=== PATIENT | female | born 1955 | race Caucasian/White ===

== ENCOUNTER 2017-02-19 02:10 | Inpatient (IN) | payer OTHER ==
[~2017-02-19] VITALS: Ht 162.6 cm; Wt 127.1 kg
[~2017-02-19 02:10] MED LIST: ACTOS30 MG PO; Ecotrin PO; GLIPIZIDE10 M1 PO; METFORMIN HCL850 MG PO; PriLOSEC PO; ZESTRIL,PRINIVI10 MG PO
[2017-02-19 04:29] LABS: HEMATOCRIT 29.9 % (36.0-46.0); MCHC 33.4 G/DL (30.0-36.0); MCV 98.7 FL (83-99); MEAN PLAT.VOLUME 9.9 uM^3 (9.5-12.4); PLATELET COUNT 68 K/uL (156-360); RBC DIS.WIDTH-CV 13.6 % (11.8-14.6); RBC DIS.WIDTH-SD 49.7 % (39-53); RED BLOOD COUNT 3.03 M/uL (3.80-5.20); WHITE BLOOD COUNT 7.6 K/uL (4.1-10.2)
[2017-02-19 04:39] LABS: CHLORIDE 109 mEq/L (99-109); POTASSIUM 5.6 mEq/L (3.7-5.4); SODIUM 135 mEq/L (136-147)
[2017-02-19 04:41] LABS: GLUCOSE 167 mg/dL (70-99)
[2017-02-19 04:42] LABS: ANION GAP 8 MEQ/L (2-14)
[2017-02-19 04:43] LABS: TOTAL BILIRUBIN 1.7 mg/dL (0.0-1.0)
[2017-02-19 04:45] LABS: ALKALINE PHOSPHATASE 155 IU/L (3-129); GFR ESTIMATE (CALCULATED) 13 mL/min/
[2017-02-19 04:46] LABS: UREA NITROGEN (BUN) 69 mg/dL (9-23)
[2017-02-19 04:48] LABS: LIPASE 96 U/L (1.0-51.0)
[2017-02-19 04:55] LABS: INTER. NORMALIZED RATIO 1.2; PROTHROMBIN TIME 12.6 (9.2-11.2); PTT 31.3 (25-32)
[2017-02-19] MEDS ORDERED: GLIPIZIDE10 MG PO (08:21)
[2017-02-19] MEDS ORDERED: LISINOPRIL2.5 MG PO (08:21)
[2017-02-19] MEDS ORDERED: NEXIUM40 MG PO (08:25)
[2017-02-19] MEDS ORDERED: BUPROPION HCL75 MG PO (08:26)
[2017-02-19] MEDS ORDERED: FLUOXETINE HCL10 MG PO (08:27)
[2017-02-19] MEDS ORDERED: ARIPIPRAZOLE10 MG PO (08:27)
[2017-02-19] MEDS ORDERED: AMIODARONE HCL100 MG PO (08:27)
[2017-02-19] MEDS ORDERED: SPIRONOLACTONE100 MG PO (08:28)
[2017-02-19] MEDS ORDERED: GELATIN650 MG PO (08:28)
[2017-02-19] MEDS ORDERED: MELATONIN5 M1 PO (08:28)
[2017-02-19] MEDS ORDERED: BYDUREON P2 MG/0.65 SC (08:30)
[2017-02-19 09:45] LABS: ADD MIUA? NO; BILIRUBIN NEGATIVE; BLOOD NEGATIVE; COLOR AMBER ((YELLOW)); GLUCOSE (STRIP) NEGATIVE; KETONES NEGATIVE; LEUKOCYTES NEGATIVE; NITRITE NEGATIVE; PROTEIN (STRIP) NEGATIVE; SPECIFIC GRAVITY 1.014 (1.000-1.030); UCUL ADDED? NO
[2017-02-19 10:38] LABS: UR CREATININE CONCENTRATION 242.5 MG/DL
[2017-02-19 13:11] VITALS: BP 103/49
[2017-02-19 13:13] VITALS: BP 103/99
[2017-02-19 15:51] LABS: ANION GAP 9 MEQ/L (2-14); CHLORIDE 111 MEQ/L (99-109); GFR ESTIMATE (CALCULATED) 14 mL/min/; GLUCOSE 138 mg/dL (70-99); POTASSIUM 5.1 MEQ/L (3.7-5.4); SAMPLE HEMOLYSIS CHECK 0; SAMPLE ICTERIC CHECK 0; SAMPLE LIPEMIA CHECK 0; SODIUM 138 MEQ/L (136-147); UREA NITROGEN (BUN) 64 mg/dL (9-23)
[2017-02-19 16:00] VITALS: BP 118/63
[2017-02-19 19:40] VITALS: BP 99/55
[2017-02-19 23:50] VITALS: BP 92/54
[2017-02-20 04:05] VITALS: BP 90/58
[2017-02-20 06:10] LABS: HEMATOCRIT 23.1 % (36.0-46.0); IMM.PLATELET FRACTION 1.6 (1-7); MCH 34.4 PG (29.0-34.0); MCHC 33.8 G/DL (30.0-36.0); MCV 101.8 FL (83-99); MEAN PLAT.VOLUME 10.9 uM^3 (9.5-12.4); PLATELET COUNT 49 K/uL (156-360); RBC DIS.WIDTH-CV 13.7 % (11.8-14.6); RBC DIS.WIDTH-SD 50.7 % (39-53); WHITE BLOOD COUNT 3.9 K/uL (4.1-10.2)
[2017-02-20 06:15] LABS: RED BLOOD COUNT 2.27 M/uL (3.80-5.20)
[2017-02-20 06:20] LABS: ALKALINE PHOSPHATASE 98 IU/L (3-129); ANION GAP 9 MEQ/L (2-14); CHLORIDE 113 MEQ/L (99-109); GFR ESTIMATE (CALCULATED) 14 mL/min/; GLUCOSE 111 mg/dL (70-99); POTASSIUM 4.7 MEQ/L (3.7-5.4); SAMPLE HEMOLYSIS CHECK 0; SAMPLE ICTERIC CHECK 0; SAMPLE LIPEMIA CHECK 0; SODIUM 139 MEQ/L (136-147); TOTAL BILIRUBIN 1.8 MG/DL (0.0-1.0); UREA NITROGEN (BUN) 62 mg/dL (9-23)
[2017-02-20 06:47] LABS: INTER. NORMALIZED RATIO 1.4
[2017-02-20 07:36] LABS: POINT-OF-CARE METER ID UU14174216
[2017-02-20 07:45] VITALS: BP 91/50
[2017-02-20 08:57] LABS: PLAT.SUFFICIENCY DECREASED
[2017-02-20 12:00] VITALS: BP 93/54
[2017-02-20 16:00] VITALS: BP 108/62
[2017-02-20 18:55] LABS: UR CREATININE CONCENTRATION 222.6 MG/DL
[2017-02-20 19:20] VITALS: BP 101/60
[2017-02-20 22:34] VITALS: BP 103/55
[2017-02-21 03:42] VITALS: BP 106/67
[2017-02-21 05:48] LABS: EOSINOPHIL (%) 5.1 % (0-5); EOSINOPHIL COUNT 0.4 K/uL (0-0.3); HEMATOCRIT 26.2 % (36.0-46.0); IMMATURE GRANULOCYTE COUNT 0.1 K/uL; INSTRUMENT ABS NEUTROPHIL CT 5.4 K/uL; LYMPHOCYTE COUNT 0.5 K/uL (1.0-2.8); MCH 32.9 PG (29.0-34.0); MCHC 32.4 G/DL (30.0-36.0); MCV 101.6 FL (83-99); MEAN PLAT.VOLUME 10.4 uM^3 (9.5-12.4); MONOCYTE (%) 7.9 % (3-12); MONOCYTE COUNT 0.6 K/uL (0-0.8); NEUTROPHIL (%) 78.5 % (45-76); NEUTROPHIL COUNT 5.4 K/uL (1.8-6.4); PLATELET COUNT 62 K/uL (156-360); RBC DIS.WIDTH-CV 13.7 % (11.8-14.6); RBC DIS.WIDTH-SD 50.6 % (39-53); RED BLOOD COUNT 2.58 M/uL (3.80-5.20); WHITE BLOOD COUNT 6.9 K/uL (4.1-10.2)
[2017-02-21 06:16] LABS: ANION GAP 8 MEQ/L (2-14); CHLORIDE 110 MEQ/L (99-109); GFR ESTIMATE (CALCULATED) 14 mL/min/; GLUCOSE 129 mg/dL (70-99); POTASSIUM 4.8 MEQ/L (3.7-5.4); SAMPLE HEMOLYSIS CHECK 0; SAMPLE ICTERIC CHECK 0; SAMPLE LIPEMIA CHECK 0; SODIUM 136 MEQ/L (136-147); UREA NITROGEN (BUN) 62 mg/dL (9-23); URIC ACID 11.3 mg/dL (3.1-9.2)
[2017-02-21 06:17] LABS: ALKALINE PHOSPHATASE 113 IU/L (3-129); ANION GAP 8 MEQ/L (2-14); CHLORIDE 111 MEQ/L (99-109); GFR ESTIMATE (CALCULATED) 14 mL/min/; GLUCOSE 130 mg/dL (70-99); POTASSIUM 4.8 MEQ/L (3.7-5.4); SAMPLE HEMOLYSIS CHECK 0; SAMPLE ICTERIC CHECK 0; SAMPLE LIPEMIA CHECK 0; SODIUM 137 MEQ/L (136-147); TOTAL BILIRUBIN 2.1 MG/DL (0.0-1.0); UREA NITROGEN (BUN) 59 mg/dL (9-23)
[2017-02-21 07:53] VITALS: BP 99/55
[2017-02-21 08:04] LABS: POINT-OF-CARE METER ID UU14174216
[2017-02-21 08:11] LABS: FERRITIN 323 NG/ML (10-291)
[2017-02-21 10:34] LABS: HBSG INDEX 0.25
[2017-02-21 10:35] LABS: AHBS INDEX 0; HEPATITIS B SURFACE ANTIBODY Nonreactive
[2017-02-21 11:00] LABS: POINT-OF-CARE METER ID UU14174216
[2017-02-21 11:07] VITALS: BP 103/64
[2017-02-21 15:06] VITALS: BP 103/57
[2017-02-21 19:01] VITALS: BP 105/57
[2017-02-21 23:22] VITALS: BP 106/53
[2017-02-22 05:30] VITALS: BP 111/55
[2017-02-22 05:46] LABS: HEMATOCRIT 25.8 % (36.0-46.0); MCH 34.4 PG (29.0-34.0); MCHC 33.7 G/DL (30.0-36.0); MEAN PLAT.VOLUME 10.6 uM^3 (9.5-12.4); PLATELET COUNT 64 K/uL (156-360); RBC DIS.WIDTH-CV 13.5 % (11.8-14.6); RBC DIS.WIDTH-SD 50.6 % (39-53); RED BLOOD COUNT 2.53 M/uL (3.80-5.20); WHITE BLOOD COUNT 7.1 K/uL (4.1-10.2)
[2017-02-22 06:13] LABS: ANION GAP 9 MEQ/L (2-14); CHLORIDE 111 MEQ/L (99-109); GFR ESTIMATE (CALCULATED) 15 mL/min/; GLUCOSE 138 mg/dL (70-99); SAMPLE HEMOLYSIS CHECK 0; SAMPLE ICTERIC CHECK 0; SAMPLE LIPEMIA CHECK 0; SODIUM 137 MEQ/L (136-147); UREA NITROGEN (BUN) 62 mg/dL (9-23)
[2017-02-22 07:30] VITALS: BP 111/56
[2017-02-22 16:44] LABS: MITOCHONDRIAL (M2) ANTIBODIES+ <=20.0 U (<=20.0)
[2017-02-22 22:36] LABS: ANTI-SMOOTH MUSCLE (Actin)+ <20 U (<20); HCV RNA (IU/mL) <15 IU/mL (<15)
[2017-02-23 09:17] LABS: HCV RNA (LOG IU/mL) <1.18 (<1.18)
== END 2017-02-22 11:15 | disposition short-term general hospital (02) | DRG 442 ==
LOC: EME 02:10 → 4EAST 08:16 → EDOF 08:16 → 4EAST 12:45
PROVIDERS: Emergency Medicine; Hospitalist; Internal Medicine; Internal Medicine Gastroenterology; Internal Medicine Nephrology
PROC: 0W9G3ZZ Drainage of Peritoneal Cavity, Percutaneous Approach (ICD-10-PCS; principal; 2017-02-19)
DX: K76.7 Hepatorenal syndrome (principal); K72.90 Hepatic failure, unspecified without coma; I95.9 Hypotension, unspecified; N17.9 Acute kidney failure, unspecified; R18.8 Other ascites; E87.2 Acidosis; I85.00 Esophageal varices without bleeding; N18.4 Chronic kidney disease, stage 4 (severe); D69.6 Thrombocytopenia, unspecified; K76.6 Portal hypertension; K75.81 Nonalcoholic steatohepatitis (NASH); K74.69 Other cirrhosis of liver; D63.1 Anemia in chronic kidney disease; E11.22 Type 2 diabetes mellitus with diabetic chronic kidney disease; R01.1 Cardiac murmur, unspecified; E66.9 Obesity, unspecified; E87.1 Hypo-osmolality and hyponatremia; E87.5 Hyperkalemia; F17.210 Nicotine dependence, cigarettes, uncomplicated; I12.9 Hypertensive chronic kidney disease with stage 1 through stage 4 chronic kidney disease, or unspecified chronic kidney disease; I25.10 Atherosclerotic heart disease of native coronary artery without angina pectoris; Z82.49 Family history of ischemic heart disease and other diseases of the circulatory system; Z83.3 Family history of diabetes mellitus; Z96.653 Presence of artificial knee joint, bilateral; I49.9 Cardiac arrhythmia, unspecified; M79.89 Other specified soft tissue disorders; R06.02 Shortness of breath; R60.0 Localized edema; R60.1 Generalized edema; R79.89 Other specified abnormal findings of blood chemistry
CPT/HCPCS: 49083; 74176; 76770; 80048 91; 80053; 80069; 81003; 82105 90; 82140; 82272; 82436; 82570; 82728; 82948; 83516 90; 83690; 84100; 84156; 84300; 84550; 85025; 85027; 85610; 85730; 86038; 86256 90; 86706; 87070; 87075; 87205; 87340; 87522 90; 93005; 93306; 99281; 99285; C9113; J1815; J2354; J2405; J7030; P9047

== ENCOUNTER 2017-03-08 16:29 | Inpatient (IN) | payer OTHER ==
[~2017-03-08] VITALS: Ht 162.6 cm; Wt 119.2 kg
[~2017-03-08 16:29] MED LIST changes: +AMIODARONE HCL100 MG PO; +ARIPIPRAZOLE10 MG PO; +BUPROPION HCL75 MG PO; +BYDUREON P2 MG/0.65 SC; +FLUOXETINE HCL10 MG PO; +GELATIN650 MG PO; +GLIPIZIDE10 MG PO; +LISINOPRIL2.5 MG PO; +MELATONIN5 M1 PO; +NEXIUM40 MG PO; +SPIRONOLACTONE100 MG PO
[2017-03-08 17:46] LABS: EOSINOPHIL (%) 3.9 % (0-5); EOSINOPHIL COUNT 0.2 K/uL (0-0.3); HEMATOCRIT 26.8 % (36.0-46.0); IMMATURE GRANULOCYTE (%) 1.4 % (0.0-0.7); IMMATURE GRANULOCYTE COUNT 0.1 K/uL; INSTRUMENT ABS NEUTROPHIL CT 3.3 K/uL; LYMPHOCYTE COUNT 0.4 K/uL (1.0-2.8); MCH 32.6 PG (29.0-34.0); MCHC 33.2 G/DL (30.0-36.0); MCV 98.2 FL (83-99); MEAN PLAT.VOLUME 11.9 uM^3 (9.5-12.4); MONOCYTE (%) 9.8 % (3-12); MONOCYTE COUNT 0.4 K/uL (0-0.8); NEUTROPHIL (%) 74.9 % (45-76); NEUTROPHIL COUNT 3.3 K/uL (1.8-6.4); PLATELET COUNT 76 K/uL (156-360); RBC DIS.WIDTH-SD 68.2 % (39-53); RED BLOOD COUNT 2.73 M/uL (3.80-5.20); WHITE BLOOD COUNT 4.4 K/uL (4.1-10.2)
[2017-03-08 17:53] LABS: INTER. NORMALIZED RATIO 1.4; PROTHROMBIN TIME 16.1 SEC (10.2-12.9)
[2017-03-08 17:55] LABS: PTT 32.6 SEC (25-37)
[2017-03-08 18:07] LABS: TROP-I INTERPRETATION NEGATIVE; TROPONIN-I 0.02 ng/mL (0.0-0.30)
[2017-03-08 18:13] LABS: CHLORIDE 114 mEq/L (99-109); POTASSIUM 5.7 mEq/L (3.7-5.4); SODIUM 139 mEq/L (136-147)
[2017-03-08 18:16] LABS: GLUCOSE 142 mg/dL (70-99)
[2017-03-08 18:17] LABS: ANION GAP 12 MEQ/L (2-14); TOTAL BILIRUBIN 2.5 mg/dL (0.0-1.0)
[2017-03-08 18:19] LABS: ALKALINE PHOSPHATASE 115 IU/L (3-129); GFR ESTIMATE (CALCULATED) 16 mL/min/
[2017-03-08 18:20] LABS: UREA NITROGEN (BUN) 64 mg/dL (9-23)
[2017-03-08 18:21] LABS: DIRECT BILIRUBIN 1.3 mg/dL (0.0-0.3)
[2017-03-08 18:23] LABS: LIPASE 77 U/L (1.0-51.0)
[2017-03-08] MEDS ORDERED: ABILIFY10 MG PO (18:23)
[2017-03-08] MEDS ORDERED: JANUVIA25 MG PO (18:26)
[2017-03-08] MEDS ORDERED: FUROSEMIDE80 MG PO (18:26)
[2017-03-08] MEDS ORDERED: NEXIUM40 MG PO (18:27)
[2017-03-08] MEDS ORDERED: XIFAXAN550 MG PO (20:32)
[2017-03-08] MEDS ORDERED: ENULOSE10 GM/15 M PO (20:32)
[2017-03-08 23:20] LABS: POINT-OF-CARE METER ID UU14100415
[2017-03-09] VITALS (7 sets, daily range): BP systolic 106–142; BP diastolic 55–78
[2017-03-09 01:54] LABS: ADD MIUA? YES; BILIRUBIN NEGATIVE; BLOOD NEGATIVE; COLOR AMBER ((YELLOW)); GLUCOSE (STRIP) NEGATIVE; KETONES NEGATIVE; LEUKOCYTES SMALL; NITRITE NEGATIVE; PROTEIN (STRIP) NEGATIVE; SPECIFIC GRAVITY 1.014 (1.000-1.030)
[2017-03-09 02:04] LABS: BACTERIA NONE SEEN /HPF; EPITHELIAL CELLS 1+ /HPF; HYALINE CASTS 15-20 /LPF; MUCUS TRACE /LPF; RED BLOOD CELLS 0-5 /HPF (0-5); UCUL ADDED? NO; WHITE BLOOD CELLS 15-20 /HPF (0-5)
[2017-03-09 06:16] LABS: ANION GAP 9 MEQ/L (2-14); CHLORIDE 115 MEQ/L (99-109); GFR ESTIMATE (CALCULATED) 17 mL/min/; POTASSIUM 5.4 MEQ/L (3.7-5.4); SAMPLE HEMOLYSIS CHECK 0; SAMPLE ICTERIC CHECK 0; SAMPLE LIPEMIA CHECK 0; SODIUM 143 MEQ/L (136-147); UREA NITROGEN (BUN) 58 mg/dL (9-23)
[2017-03-09 06:20] LABS: GLUCOSE 93 mg/dL (70-99)
[2017-03-09 06:29] LABS: HEMATOCRIT 25.2 % (36.0-46.0); MCH 32.3 PG (29.0-34.0); MCHC 32.1 G/DL (30.0-36.0); MCV 100.4 FL (83-99); RBC DIS.WIDTH-CV 18.9 % (11.8-14.6); RBC DIS.WIDTH-SD 69.8 % (39-53); RED BLOOD COUNT 2.51 M/uL (3.80-5.20); WHITE BLOOD COUNT 3.7 K/uL (4.1-10.2)
[2017-03-09 06:46] LABS: MEAN PLAT.VOLUME 11.7 uM^3 (9.5-12.4); PLAT.SUFFICIENCY DECREASED
[2017-03-09 06:49] LABS: PLATELET COUNT 53 K/uL (156-360)
[2017-03-09 12:38] LABS: POINT-OF-CARE METER ID UU14188625
[2017-03-10 03:39] VITALS: BP 114/58
[2017-03-10 06:24] LABS: HEMATOCRIT 23.9 % (36.0-46.0); MCH 32.4 PG (29.0-34.0); MCHC 32.2 G/DL (30.0-36.0); MCV 100.4 FL (83-99); MEAN PLAT.VOLUME 11.5 uM^3 (9.5-12.4); PLATELET COUNT 53 K/uL (156-360); RBC DIS.WIDTH-CV 19.1 % (11.8-14.6); RBC DIS.WIDTH-SD 70.6 % (39-53); RED BLOOD COUNT 2.38 M/uL (3.80-5.20); WHITE BLOOD COUNT 3.6 K/uL (4.1-10.2)
[2017-03-10 07:00] LABS: ANION GAP 10 MEQ/L (2-14); CHLORIDE 115 MEQ/L (99-109); GFR ESTIMATE (CALCULATED) 18 mL/min/; POTASSIUM 4.9 MEQ/L (3.7-5.4); SAMPLE HEMOLYSIS CHECK 0; SAMPLE ICTERIC CHECK 0; SAMPLE LIPEMIA CHECK 0; SODIUM 142 MEQ/L (136-147); UREA NITROGEN (BUN) 57 mg/dL (9-23)
[2017-03-10 07:02] LABS: GLUCOSE 60 mg/dL (70-99)
[2017-03-10 07:35] LABS: POINT-OF-CARE METER ID UU14188625
[2017-03-10 07:45] VITALS: BP 124/58
[2017-03-10 09:06] LABS: POINT-OF-CARE METER ID UU14188625
[2017-03-10 11:13] VITALS: BP 110/64
[2017-03-10 11:15] LABS: POINT-OF-CARE METER ID UU14188625
[2017-03-10 15:07] VITALS: BP 116/54
[2017-03-10 16:33] LABS: POINT-OF-CARE METER ID UU14188625
[2017-03-10 16:45] LABS: HEMATOCRIT 23.7 % (36.0-46.0); MCV 100.4 FL (83-99)
[2017-03-10 21:33] LABS: POINT-OF-CARE METER ID UU14188625
[2017-03-11] VITALS: BP 111/57
[2017-03-11 05:46] LABS: HEMATOCRIT 23.8 % (36.0-46.0); MCH 33.1 PG (29.0-34.0); MCHC 33.2 G/DL (30.0-36.0); MCV 99.6 FL (83-99); MEAN PLAT.VOLUME 10.8 uM^3 (9.5-12.4); PLATELET COUNT 60 K/uL (156-360); RBC DIS.WIDTH-SD 69.7 % (39-53); RED BLOOD COUNT 2.39 M/uL (3.80-5.20); WHITE BLOOD COUNT 4.7 K/uL (4.1-10.2)
[2017-03-11 06:12] LABS: ANION GAP 9 MEQ/L (2-14); CHLORIDE 113 MEQ/L (99-109); GFR ESTIMATE (CALCULATED) 18 mL/min/; GLUCOSE 66 mg/dL (70-99); POTASSIUM 4.8 MEQ/L (3.7-5.4); SAMPLE HEMOLYSIS CHECK 0; SAMPLE ICTERIC CHECK 0; SAMPLE LIPEMIA CHECK 0; SODIUM 142 MEQ/L (136-147); UREA NITROGEN (BUN) 56 mg/dL (9-23)
[2017-03-11 07:18] LABS: POINT-OF-CARE METER ID UU14188625
[2017-03-11 07:43] VITALS: BP 121/59
[2017-03-11 08:00] LABS: POINT-OF-CARE METER ID UU14188625
[2017-03-11 09:56] LABS: ALKALINE PHOSPHATASE 92 IU/L (3-129); DIRECT BILIRUBIN 1.3 mg/dL (0.0-0.3); TOTAL BILIRUBIN 2.7 MG/DL (0.0-1.0)
[2017-03-11 11:25] LABS: POINT-OF-CARE METER ID UU14188625
[2017-03-11 11:30] LABS: INTERNAL CONTROL VALID? YES
[2017-03-11 15:11] VITALS: BP 132/63
[2017-03-11 16:34] LABS: POINT-OF-CARE METER ID UU14174225
[2017-03-11 21:08] LABS: POINT-OF-CARE METER ID UU14174225; POINT-OF-CARE USER ID BHSKTD
[2017-03-12 04:00] VITALS: BP 114/66
[2017-03-12 05:41] LABS: HEMATOCRIT 24.2 % (36.0-46.0); MCH 32.5 PG (29.0-34.0); MCHC 32.6 G/DL (30.0-36.0); MCV 99.6 FL (83-99); MEAN PLAT.VOLUME 11.4 uM^3 (9.5-12.4); PLATELET COUNT 61 K/uL (156-360); RBC DIS.WIDTH-SD 68.7 % (39-53); RED BLOOD COUNT 2.43 M/uL (3.80-5.20); WHITE BLOOD COUNT 4.2 K/uL (4.1-10.2)
[2017-03-12 06:22] LABS: ANION GAP 13 MEQ/L (2-14); CHLORIDE 112 MEQ/L (99-109); GFR ESTIMATE (CALCULATED) 18 mL/min/; POTASSIUM 4.9 MEQ/L (3.7-5.4); SAMPLE HEMOLYSIS CHECK 0; SAMPLE ICTERIC CHECK 0; SAMPLE LIPEMIA CHECK 0; SODIUM 143 MEQ/L (136-147); UREA NITROGEN (BUN) 54 mg/dL (9-23)
[2017-03-12 06:25] LABS: GLUCOSE 91 mg/dL (70-99)
[2017-03-12 09:00] VITALS: BP 112/56
[2017-03-12 11:00] VITALS: BP 117/62
[2017-03-12] MEDS ORDERED: BUMETANIDE1 MG PO (12:58)
[2017-03-12] MEDS ORDERED: ALLOPURINOL100 MG PO (12:59)
[2017-03-12] MEDS ORDERED: NABI650T PO (12:59)
== END 2017-03-12 14:15 | disposition home or self-care (01) | DRG 683 ==
LOC: EME 16:29 → 5SOUTH 21:18 → EDOF 21:18 → 5SOUTH 23:47
PROVIDERS: Emergency Medicine; Hospitalist; Internal Medicine; Internal Medicine Nephrology; Nurse Practitioner Adult Health; Physician Assistant Medical
DX: N17.9 Acute kidney failure, unspecified (principal); E11.22 Type 2 diabetes mellitus with diabetic chronic kidney disease; E87.5 Hyperkalemia; E66.01 Morbid (severe) obesity due to excess calories; E87.2 Acidosis; E87.70 Fluid overload, unspecified; R18.8 Other ascites; K76.6 Portal hypertension; K72.10 Chronic hepatic failure without coma; K74.60 Unspecified cirrhosis of liver; K75.81 Nonalcoholic steatohepatitis (NASH); F17.200 Nicotine dependence, unspecified, uncomplicated; I49.9 Cardiac arrhythmia, unspecified; I12.9 Hypertensive chronic kidney disease with stage 1 through stage 4 chronic kidney disease, or unspecified chronic kidney disease; F32.9 Major depressive disorder, single episode, unspecified; N18.4 Chronic kidney disease, stage 4 (severe); Z96.653 Presence of artificial knee joint, bilateral; E86.0 Dehydration; D63.8 Anemia in other chronic diseases classified elsewhere; Z82.49 Family history of ischemic heart disease and other diseases of the circulatory system; Z82.0 Family history of epilepsy and other diseases of the nervous system; Z76.82 Awaiting organ transplant status; Z68.42 Body mass index [BMI] 45.0-49.9, adult; Z82.3 Family history of stroke
CPT/HCPCS: 36415; 71020; 80048; 80069; 80076; 81003; 82272; 82436; 82570; 82728; 82948; 83540; 83690; 83970 GA; 84133; 84156; 84300; 84466; 84484; 84550; 85014; 85018; 85025; 85027; 85610; 85730; 99281; 99285; J1815; J7070; P9047

== ENCOUNTER → 2017-03-20 | Outpatient (CLI) | payer OTHER ==
[~2017-03-20] MED LIST changes: +ABILIFY10 MG PO; +ALLOPURINOL100 MG PO; +BUMETANIDE1 MG PO; +ENULOSE10 GM/15 M PO; +FUROSEMIDE80 MG PO; +JANUVIA25 MG PO; +NABI650T PO; +XIFAXAN550 MG PO
== END | disposition home or self-care (01) ==
LOC: RAD 13:14
PROC: 0W9G3ZZ Drainage of Peritoneal Cavity, Percutaneous Approach (ICD-10-PCS; principal; 2017-03-20)
DX: R18.8 Other ascites (principal); K74.60 Unspecified cirrhosis of liver; D53.9 Nutritional anemia, unspecified
CPT/HCPCS: 49083

== ENCOUNTER → 2017-03-28 | Outpatient (CLI) | payer OTHER | END | disposition home or self-care (01) | LOC: RAD 13:15 | PROC: 0W9G3ZZ Drainage of Peritoneal Cavity, Percutaneous Approach (ICD-10-PCS; principal; 2017-03-28) | DX: R18.8 Other ascites (principal); D53.9 Nutritional anemia, unspecified; K74.60 Unspecified cirrhosis of liver | CPT/HCPCS: 49083; P9047 ==

== ENCOUNTER 2017-04-04 07:32 | Inpatient (IN) | payer OTHER ==
[~2017-04-04] VITALS: Ht 160 cm; Wt 122.2 kg
[2017-04-04 08:39] LABS: HEMATOCRIT 26.5 % (36.0-46.0); MCH 31.9 PG (29.0-34.0); MCHC 32.8 G/DL (30.0-36.0); MCV 97.1 FL (83-99); MEAN PLAT.VOLUME 11.7 uM^3 (9.5-12.4); PLATELET COUNT 64 K/uL (156-360); RBC DIS.WIDTH-CV 17.5 % (11.8-14.6); RBC DIS.WIDTH-SD 62.6 % (39-53); RED BLOOD COUNT 2.73 M/uL (3.80-5.20); WHITE BLOOD COUNT 4.1 K/uL (4.1-10.2)
[2017-04-04 09:12] LABS: ANION GAP 13 MEQ/L (2-14); CHLORIDE 101 MEQ/L (99-109); POTASSIUM 5.3 MEQ/L (3.7-5.4); SAMPLE HEMOLYSIS CHECK 1; SAMPLE ICTERIC CHECK 0; SAMPLE LIPEMIA CHECK 0; SODIUM 137 MEQ/L (136-147); TOTAL BILIRUBIN 2.6 MG/DL (0.0-1.0)
[2017-04-04 09:18] LABS: ALKALINE PHOSPHATASE 159 IU/L (3-129); GFR ESTIMATE (CALCULATED) 11 mL/min/; GLUCOSE 222 mg/dL (70-99); UREA NITROGEN (BUN) 69 mg/dL (9-23); URIC ACID 10.4 mg/dL (3.1-9.2)
[2017-04-04 09:50] LABS: ADD MIUA? YES; BILIRUBIN NEGATIVE; BLOOD NEGATIVE; COLOR AMBER ((YELLOW)); GLUCOSE (STRIP) NEGATIVE; KETONES NEGATIVE; LEUKOCYTES SMALL; NITRITE NEGATIVE; PROTEIN (STRIP) NEGATIVE; SPECIFIC GRAVITY 1.014 (1.000-1.030)
[2017-04-04 10:03] LABS: BACTERIA 2+ /HPF; EPITHELIAL CELLS 3+ /HPF; RED BLOOD CELLS 0-5 /HPF (0-5); UCUL ADDED? YES
[2017-04-04 10:04] LABS: CASTS NONE SEEN /LPF; CRYSTALS NONE SEEN; MUCUS NONE SEEN /LPF
[2017-04-04 13:46] VITALS: BP 136/76
[2017-04-04] MEDS ORDERED: BYDUREON2 MG SC (15:14)
[2017-04-04] MEDS ORDERED: ERGOCALCIF50000 UNIT PO (15:15)
[2017-04-04] MEDS ORDERED: ZOFRAN ODT8 MG PO (15:16)
[2017-04-04 15:56] LABS: POINT-OF-CARE METER ID UU13113717
[2017-04-04 17:18] LABS: TROP-I INTERPRETATION NEGATIVE; TROPONIN-I 0.04 ng/mL (0.0-0.30)
[2017-04-04 19:10] LABS: TROP-I INTERPRETATION NEGATIVE; TROPONIN-I 0.04 ng/mL (0.0-0.30)
[2017-04-04 20:04] VITALS: BP 112/53
[2017-04-04 23:56] VITALS: BP 140/71
[2017-04-05] VITALS (7 sets, daily range): BP systolic 97–142; BP diastolic 52–71
[2017-04-05 01:54] LABS: TROP-I INTERPRETATION NEGATIVE; TROPONIN-I 0.05 ng/mL (0.0-0.30)
[2017-04-05 07:17] LABS: ALKALINE PHOSPHATASE 121 IU/L (3-129); ANION GAP 13 MEQ/L (2-14); ANION GAP 15 MEQ/L (2-14); CHLORIDE 104 MEQ/L (99-109); CHLORIDE 105 MEQ/L (99-109); GFR ESTIMATE (CALCULATED) 10 mL/min/; GLUCOSE 131 mg/dL (70-99); POTASSIUM 4.3 MEQ/L (3.7-5.4); POTASSIUM 4.5 MEQ/L (3.7-5.4); SAMPLE HEMOLYSIS CHECK 0; SAMPLE ICTERIC CHECK 1; SAMPLE LIPEMIA CHECK 0; SODIUM 142 MEQ/L (136-147); TOTAL BILIRUBIN 3.1 MG/DL (0.0-1.0); UREA NITROGEN (BUN) 71 mg/dL (9-23); UREA NITROGEN (BUN) 72 mg/dL (9-23)
[2017-04-05 07:38] LABS: POINT-OF-CARE METER ID UU14174225
[2017-04-05 08:15] LABS: EOSINOPHIL (%) 5.9 % (0-5); EOSINOPHIL COUNT 0.3 K/uL (0-0.3); HEMATOCRIT 23.3 % (36.0-46.0); IMMATURE GRANULOCYTE (%) 0.7 % (0.0-0.7); INSTRUMENT ABS NEUTROPHIL CT 3.1 K/uL; LYMPHOCYTE COUNT 0.5 K/uL (1.0-2.8); MCH 32.6 PG (29.0-34.0); MCHC 32.6 G/DL (30.0-36.0); MEAN PLAT.VOLUME 10.4 uM^3 (9.5-12.4); MONOCYTE (%) 7.1 % (3-12); MONOCYTE COUNT 0.3 K/uL (0-0.8); NEUTROPHIL (%) 74.5 % (45-76); NEUTROPHIL COUNT 3.1 K/uL (1.8-6.4); PLATELET COUNT 57 K/uL (156-360); RBC DIS.WIDTH-CV 17.8 % (11.8-14.6); RBC DIS.WIDTH-SD 65.1 % (39-53); RED BLOOD COUNT 2.33 M/uL (3.80-5.20); WHITE BLOOD COUNT 4.2 K/uL (4.1-10.2)
[2017-04-05 11:52] LABS: HBSG INDEX 0.17; HEPATITIS B SURFACE ANTIBODY Nonreactive
[2017-04-05 12:07] LABS: HEMATOCRIT 22.3 % (36.0-46.0); MCV 99.1 FL (83-99)
[2017-04-05 13:09] LABS: INTER. NORMALIZED RATIO 1.3; PROTHROMBIN TIME 14.1 SEC (10.2-12.9)
[2017-04-05 13:12] LABS: PTT 31.5 SEC (25-37)
[2017-04-05 16:25] LABS: POINT-OF-CARE METER ID UU14174225
[2017-04-06 03:55] VITALS: BP 106/64
[2017-04-06 07:13] LABS: HEMATOCRIT 23.7 % (36.0-46.0); MCH 32.6 PG (29.0-34.0); MCHC 32.5 G/DL (30.0-36.0); MCV 100.4 FL (83-99); RBC DIS.WIDTH-CV 17.8 % (11.8-14.6); RBC DIS.WIDTH-SD 65.9 % (39-53); RED BLOOD COUNT 2.36 M/uL (3.80-5.20); WHITE BLOOD COUNT 4.1 K/uL (4.1-10.2)
[2017-04-06 07:44] LABS: ANION GAP 15 MEQ/L (2-14); CHLORIDE 105 MEQ/L (99-109); GFR ESTIMATE (CALCULATED) 10 mL/min/; GLUCOSE 135 mg/dL (70-99); POTASSIUM 4.3 MEQ/L (3.7-5.4); SAMPLE HEMOLYSIS CHECK 0; SAMPLE ICTERIC CHECK 0; SAMPLE LIPEMIA CHECK 0; SODIUM 142 MEQ/L (136-147); UREA NITROGEN (BUN) 76 mg/dL (9-23)
[2017-04-06 08:07] LABS: POINT-OF-CARE METER ID UU13113717
[2017-04-06 08:12] LABS: IMM.PLATELET FRACTION 1.5 (1-7); MEAN PLAT.VOLUME 10.3 uM^3 (9.5-12.4); PLATELET COUNT 50 K/uL (156-360)
[2017-04-06 08:13] VITALS: BP 123/69
[2017-04-06 12:49] VITALS: BP 125/72
[2017-04-06 16:28] VITALS: BP 108/58
[2017-04-06 16:51] LABS: POINT-OF-CARE METER ID UU13113717
[2017-04-06 20:05] VITALS: BP 114/66
[2017-04-06 22:04] LABS: HEMATOCRIT 21.4 % (36.0-46.0); MCH 33.8 PG (29.0-34.0); MCHC 33.6 G/DL (30.0-36.0); MCV 100.5 FL (83-99); RBC DIS.WIDTH-CV 17.7 % (11.8-14.6); RBC DIS.WIDTH-SD 65.2 % (39-53); RED BLOOD COUNT 2.13 M/uL (3.80-5.20)
[2017-04-06 22:30] LABS: IMM.PLATELET FRACTION 1.8 (1-7); PLAT.SUFFICIENCY DECREASED; PLATELET COUNT 39 K/uL (156-360)
[2017-04-06 22:53] LABS: INTERNAL CONTROL VALID? YES
[2017-04-06 23:53] VITALS: BP 108/59
[2017-04-07] VITALS (9 sets, daily range): BP systolic 97–121; BP diastolic 55–71
[2017-04-07 05:27] LABS: HEMATOCRIT 21.4 % (36.0-46.0); MCH 32.3 PG (29.0-34.0); MCHC 33.2 G/DL (30.0-36.0); MCV 97.3 FL (83-99); RBC DIS.WIDTH-SD 67.1 % (39-53); WHITE BLOOD COUNT 4.3 K/uL (4.1-10.2)
[2017-04-07 05:57] LABS: ANION GAP 10 MEQ/L (2-14); CHLORIDE 104 MEQ/L (99-109); GFR ESTIMATE (CALCULATED) 11 mL/min/; GLUCOSE 149 mg/dL (70-99); SAMPLE HEMOLYSIS CHECK 0; SAMPLE ICTERIC CHECK 0; SAMPLE LIPEMIA CHECK 0; SODIUM 142 MEQ/L (136-147); UREA NITROGEN (BUN) 50 mg/dL (9-23)
[2017-04-07 06:46] LABS: IMM.PLATELET FRACTION 1.8 (1-7); MEAN PLAT.VOLUME 9.6 uM^3 (9.5-12.4); PLAT.SUFFICIENCY DECREASED; PLATELET COUNT 47 K/uL (156-360)
[2017-04-07 16:14] LABS: POINT-OF-CARE METER ID UU13113717
[2017-04-07 16:41] LABS: HEMATOCRIT 24.3 % (36.0-46.0); MCV 96.8 FL (83-99)
[2017-04-07 16:51] LABS: INTER. NORMALIZED RATIO 1.3; PROTHROMBIN TIME 14.8 SEC (10.2-12.9)
[2017-04-07 16:53] LABS: PTT 33.5 SEC (25-37)
[2017-04-07 19:47] LABS: HEMATOCRIT 24.5 % (36.0-46.0); MCV 96.8 FL (83-99)
[2017-04-08 03:10] VITALS: BP 107/59
[2017-04-08 04:50] LABS: C DIFF TOXIN NEGATIVE (NEGATIVE)
[2017-04-08 04:53] LABS: PROBE CHECK PASS; SPECIMEN PROCESSING CONTROL PASS
[2017-04-08 06:15] LABS: INTER. NORMALIZED RATIO 1.4; PROTHROMBIN TIME 15.1 SEC (10.2-12.9)
[2017-04-08 06:17] LABS: PTT 32.8 SEC (25-37)
[2017-04-08 08:06] VITALS: BP 110/58
[2017-04-08 11:32] VITALS: BP 137/61
[2017-04-08 12:06] LABS: POINT-OF-CARE METER ID UU13113717
[2017-04-08 16:26] VITALS: BP 128/61
[2017-04-08 17:00] LABS: POINT-OF-CARE METER ID UU13113717
[2017-04-08 19:39] VITALS: BP 135/67
[2017-04-08 23:39] VITALS: BP 132/62
[2017-04-09 03:45] VITALS: BP 136/62
[2017-04-09 07:41] LABS: POINT-OF-CARE METER ID UU13113717
[2017-04-09 07:42] VITALS: BP 111/55
[2017-04-09 11:29] VITALS: BP 133/71
[2017-04-09 12:28] LABS: HEMATOCRIT 24.8 % (36.0-46.0); MCH 32.4 PG (29.0-34.0); MCHC 33.1 G/DL (30.0-36.0); RBC DIS.WIDTH-CV 19.7 % (11.8-14.6); RED BLOOD COUNT 2.53 M/uL (3.80-5.20); WHITE BLOOD COUNT 3.8 K/uL (4.1-10.2)
[2017-04-09 13:03] LABS: ANION GAP 10 MEQ/L (2-14); CHLORIDE 100 MEQ/L (99-109); GFR ESTIMATE (CALCULATED) 12 mL/min/; GLUCOSE 222 mg/dL (70-99); POTASSIUM 3.8 MEQ/L (3.7-5.4); SAMPLE HEMOLYSIS CHECK 0; SAMPLE ICTERIC CHECK 0; SAMPLE LIPEMIA CHECK 0; SODIUM 136 MEQ/L (136-147); UREA NITROGEN (BUN) 38 mg/dL (9-23)
[2017-04-09 13:14] LABS: IMM.PLATELET FRACTION 3.7 (1-7); MEAN PLAT.VOLUME 10.4 uM^3 (9.5-12.4); PLAT.SUFFICIENCY DECREASED; PLATELET COUNT 37 K/uL (156-360)
[2017-04-09 15:33] VITALS: BP 118/65
[2017-04-09 17:08] LABS: POINT-OF-CARE METER ID UU13113717
[2017-04-09 19:28] VITALS: BP 117/63
[2017-04-09 23:44] VITALS: BP 117/62
[2017-04-10 04:20] VITALS: BP 116/63
[2017-04-10 07:55] VITALS: BP 116/60
[2017-04-10 11:25] VITALS: BP 133/65
[2017-04-10] MEDS ORDERED: NEPHRO-VITE,1 TABLET PO (11:42)
[2017-04-10] MEDS ORDERED: MIDODRINE HCL5 MG PO (11:42)
[2017-04-10] MEDS ORDERED: XIFAXAN550 MG PO (11:42)
[2017-04-10] MEDS ORDERED: ARANESP100 MCG/0. IV (11:42)
[2017-04-10] MEDS ORDERED: Chronulac,Cephulac,E PO (11:42)
[2017-04-10 15:03] VITALS: BP 120/71
[2017-04-10 16:21] LABS: POINT-OF-CARE METER ID UU13113717
[2017-04-12] MEDS ORDERED: AMIODARONE HCL100 MG PO (13:52)
== END 2017-04-10 17:26 | DRG 441 ==
LOC: EME 07:32 → 5SOUTH 10:59 → EDOF 10:59 → ENRESERV 11:11 → 5SOUTH 13:39
PROVIDERS: Hospitalist; Internal Medicine; Nurse Practitioner Adult Health; Nurse Practitioner Family; Physician Assistant Medical; Physician Assistant Surgical
DX: K72.00 Acute and subacute hepatic failure without coma (principal); N17.9 Acute kidney failure, unspecified; I12.0 Hypertensive chronic kidney disease with stage 5 chronic kidney disease or end stage renal disease; N18.6 End stage renal disease; E11.22 Type 2 diabetes mellitus with diabetic chronic kidney disease; K75.81 Nonalcoholic steatohepatitis (NASH); K72.10 Chronic hepatic failure without coma; K74.60 Unspecified cirrhosis of liver; K76.6 Portal hypertension; R18.8 Other ascites; J90 Pleural effusion, not elsewhere classified; J81.1 Chronic pulmonary edema; D69.1 Qualitative platelet defects; N39.0 Urinary tract infection, site not specified; E87.70 Fluid overload, unspecified; I48.0 Paroxysmal atrial fibrillation; E87.2 Acidosis; E87.5 Hyperkalemia; D69.6 Thrombocytopenia, unspecified; E66.9 Obesity, unspecified; Z68.42 Body mass index [BMI] 45.0-49.9, adult; D63.1 Anemia in chronic kidney disease; D63.8 Anemia in other chronic diseases classified elsewhere; F32.9 Major depressive disorder, single episode, unspecified; E55.9 Vitamin D deficiency, unspecified; M10.9 Gout, unspecified; K21.9 Gastro-esophageal reflux disease without esophagitis; F17.210 Nicotine dependence, cigarettes, uncomplicated; Z91.11 Patient's noncompliance with dietary regimen; Z79.84 Long term (current) use of oral hypoglycemic drugs; Z96.653 Presence of artificial knee joint, bilateral; Z88.2 Allergy status to sulfonamides; Z82.49 Family history of ischemic heart disease and other diseases of the circulatory system; Z83.3 Family history of diabetes mellitus; Z82.3 Family history of stroke
CPT/HCPCS: 71010; 71020; 74020; 80048; 80053; 80069; 81003; 82140; 82272; 82948; 83605; 83880; 84484; 84550; 85014; 85018; 85025; 85027; 85610; 85730; 86706; 86900; 86901; 86920; 87086; 87340; 87493; 93005; 97530 GO; 99202; 99281; 99285; C1750; C1894; C9113; J0690; J0696; J0881; J1644; J1815; J2250; J2354; J2597; J3010; J7040; J7050; P9016; P9035; P9047; S0020

== ENCOUNTER 2017-04-11 18:13 | Emergency (ER) | payer OTHER ==
[~2017-04-11] VITALS: Ht 160 cm; Wt 272.2 kg
[~2017-04-11 18:13] MED LIST changes: +ARANESP100 MCG/0. IV; +BYDUREON2 MG SC; +Chronulac,Cephulac,E PO; +ERGOCALCIF50000 UNIT PO; +MIDODRINE HCL5 MG PO; +NEPHRO-VITE,1 TABLET PO; +ZOFRAN ODT8 MG PO
[2017-04-11 20:21] VITALS: BP 153/86
[2017-04-12] MEDS ORDERED: AMIODARONE HCL100 MG PO (13:52)
== END 2017-04-11 20:24 | disposition home or self-care (01) ==
LOC: EME 18:13
DX: R18.8 Other ascites (principal); I12.0 Hypertensive chronic kidney disease with stage 5 chronic kidney disease or end stage renal disease; E11.22 Type 2 diabetes mellitus with diabetic chronic kidney disease; N18.6 End stage renal disease; K74.60 Unspecified cirrhosis of liver; Z79.84 Long term (current) use of oral hypoglycemic drugs; Z99.2 Dependence on renal dialysis; F17.200 Nicotine dependence, unspecified, uncomplicated; Z88.2 Allergy status to sulfonamides
CPT/HCPCS: 99281; 99283

== ENCOUNTER → 2017-04-12 | Outpatient (CLI) | payer OTHER | END | disposition home or self-care (01) | LOC: RAD 13:00 | PROC: 0W9G3ZZ Drainage of Peritoneal Cavity, Percutaneous Approach (ICD-10-PCS; principal; 2017-04-12) | DX: R18.8 Other ascites (principal); R14.0 Abdominal distension (gaseous) | CPT/HCPCS: 49083 ==

== ENCOUNTER → 2017-04-18 | Outpatient (CLI) | payer OTHER | END | disposition home or self-care (01) | LOC: RAD 08:03 | PROC: 0W9G3ZZ Drainage of Peritoneal Cavity, Percutaneous Approach (ICD-10-PCS; principal; 2017-04-18) | DX: R18.8 Other ascites (principal) | CPT/HCPCS: 49083 ==

== ENCOUNTER → 2017-04-25 | Outpatient (CLI) | payer OTHER | END | disposition home or self-care (01) | LOC: RAD 13:03 | PROC: 0W9G3ZZ Drainage of Peritoneal Cavity, Percutaneous Approach (ICD-10-PCS; principal; 2017-04-25) | DX: R18.8 Other ascites (principal); D53.9 Nutritional anemia, unspecified; K74.60 Unspecified cirrhosis of liver | CPT/HCPCS: 49083 ==

== ENCOUNTER → 2017-05-09 | Outpatient (CLI) | payer OTHER | END | disposition home or self-care (01) | LOC: RAD 12:59 | PROC: 0W9G3ZZ Drainage of Peritoneal Cavity, Percutaneous Approach (ICD-10-PCS; principal; 2017-05-09) | DX: R18.8 Other ascites (principal) | CPT/HCPCS: 49083 ==

== ENCOUNTER → 2017-05-16 | Outpatient (CLI) | payer OTHER ==
[2017-05-16 13:39] LABS: TYPE OF FLUID PARACENTESIS
[2017-05-16 14:18] LABS: BODY FLUID EOSINOPHILS 0 % (0-25); BODY FLUID RBC'S 3000 /MM^3 (0-100); BODY FLUID WBC'S 1468 /MM^3 (0-500); COMMENT MANY MACROPHAGES SEEN; MONONUCLEAR WBC'S 14 %; POLYNUCLEAR WBC'S 86 % (0-25)
[2017-05-16 14:21] LABS: BODY FLUID PROTEIN < 3.0 G/DL
== END | disposition home or self-care (01) ==
LOC: RAD 12:57
PROVIDERS: Radiology Diagnostic Radiology
PROC: 0W9G3ZZ Drainage of Peritoneal Cavity, Percutaneous Approach (ICD-10-PCS; principal; 2017-05-16)
DX: R18.8 Other ascites (principal)
CPT/HCPCS: 49083; 84157; 87070; 87075; 87205; 88108; 88305; 89051

== ENCOUNTER → 2017-05-23 | Outpatient (CLI) | payer OTHER ==
[~2017-05-23] MED LIST changes: +GENERLAC10 GM/15 M PO; +RENVELA800 MG PO
== END | disposition home or self-care (01) ==
LOC: RAD 13:06
PROC: 0W9G3ZZ Drainage of Peritoneal Cavity, Percutaneous Approach (ICD-10-PCS; principal; 2017-05-23)
DX: R18.8 Other ascites (principal)
CPT/HCPCS: 49083

== ENCOUNTER 2017-05-26 08:27 | Inpatient (IN) | payer OTHER ==
[~2017-05-26] VITALS: Ht 160 cm; Wt 112.0 kg
[~2017-05-26 08:27] MED LIST changes: -GENERLAC10 GM/15 M PO; -RENVELA800 MG PO
[2017-05-26] MEDS ORDERED: BUMETANIDE1 MG PO (08:55)
[2017-05-26] MEDS ORDERED: NABI650T PO (08:56)
[2017-05-26] MEDS ORDERED: GENERLAC10 GM/15 M PO (08:58)
[2017-05-26] MEDS ORDERED: RENVELA800 MG PO (09:04)
[2017-05-26] MEDS ORDERED: GLIPIZIDE10 MG PO (09:04)
[2017-05-26 10:00] LABS: HEMATOCRIT 34.3 % (36.0-46.0); MCH 33.2 PG (29.0-34.0); MCHC 33.5 G/DL (30.0-36.0); MCV 99.1 FL (83-99); MEAN PLAT.VOLUME 10.1 uM^3 (9.5-12.4); PLATELET COUNT 53 K/uL (156-360); RBC DIS.WIDTH-CV 16.7 % (11.8-14.6); RBC DIS.WIDTH-SD 61.1 % (39-53); RED BLOOD COUNT 3.46 M/uL (3.80-5.20); WHITE BLOOD COUNT 7.6 K/uL (4.1-10.2)
[2017-05-26 10:05] LABS: INTER. NORMALIZED RATIO 1.4; PROTHROMBIN TIME 15.1 SEC (10.2-12.9)
[2017-05-26 10:08] LABS: PTT 32.9 SEC (25-37)
[2017-05-26 10:11] LABS: CHLORIDE 92 mEq/L (99-109); POTASSIUM 4.8 mEq/L (3.7-5.4); SODIUM 132 mEq/L (136-147)
[2017-05-26 10:13] LABS: GLUCOSE 273 mg/dL (70-99)
[2017-05-26 10:14] LABS: ANION GAP 13 MEQ/L (2-14)
[2017-05-26 10:17] LABS: GFR ESTIMATE (CALCULATED) 8 mL/min/
[2017-05-26 10:18] LABS: UREA NITROGEN (BUN) 26 mg/dL (9-23)
[2017-05-26 10:20] LABS: TROP-I INTERPRETATION INDETERMINATE; TROPONIN-I 0.35 ng/mL (0.0-0.30)
[2017-05-26 12:31] LABS: INTER. NORMALIZED RATIO 1.3; PROTHROMBIN TIME 14.8 SEC (10.2-12.9)
[2017-05-26 12:32] LABS: HEMATOCRIT 33.8 % (36.0-46.0); MCHC 33.4 G/DL (30.0-36.0); MCV 98.8 FL (83-99); MEAN PLAT.VOLUME 11.4 uM^3 (9.5-12.4); NRBC (%) 0.3 /100 WBC (0-0); PLATELET COUNT 62 K/uL (156-360); RBC DIS.WIDTH-CV 16.7 % (11.8-14.6); RBC DIS.WIDTH-SD 61.1 % (39-53); RED BLOOD COUNT 3.42 M/uL (3.80-5.20); WHITE BLOOD COUNT 7.8 K/uL (4.1-10.2)
[2017-05-26 12:34] LABS: PTT 33.6 SEC (25-37)
[2017-05-26 12:36] LABS: CHLORIDE 93 mEq/L (99-109); POTASSIUM 5.1 mEq/L (3.7-5.4); SODIUM 133 mEq/L (136-147)
[2017-05-26 12:38] LABS: GLUCOSE 271 mg/dL (70-99)
[2017-05-26 12:40] LABS: ANION GAP 13 MEQ/L (2-14); TOTAL BILIRUBIN 3.8 mg/dL (0.0-1.0)
[2017-05-26 12:42] LABS: ALKALINE PHOSPHATASE 223 IU/L (3-129); GFR ESTIMATE (CALCULATED) 8 mL/min/
[2017-05-26 12:43] LABS: UREA NITROGEN (BUN) 26 mg/dL (9-23)
[2017-05-26 14:00] VITALS: BP 98/54
[2017-05-26 16:39] LABS: POINT-OF-CARE METER ID UU13113781
[2017-05-26 18:41] LABS: TROP-I INTERPRETATION INDETERMINATE; TROPONIN-I 0.33 ng/mL (0.0-0.30)
[2017-05-26 19:50] VITALS: BP 94/60
[2017-05-26 21:17] LABS: POINT-OF-CARE METER ID UU14174216
[2017-05-26 23:35] VITALS: BP 72/43
[2017-05-27] VITALS (7 sets, daily range): BP systolic 78–98; BP diastolic 37–51
[2017-05-27 00:51] LABS: TYPE OF FLUID PARACENTESIS
[2017-05-27 01:23] LABS: BODY FLUID RBC'S 3375 /MM^3 (0-100); RED CELL AREA COUNTED 0.4; RED CELL DILUTION 1
[2017-05-27 01:24] LABS: BODY FLUID WBC'S 3200 /MM^3 (0-500); WBC AREA COUNTED 0.4; WBC DILUTION 1; WHITE CELL RAW COUNT 128
[2017-05-27 01:50] LABS: BODY FLUID EOSINOPHILS 0 % (0-25); MONO RAW COUNT 12; MONONUCLEAR WBC'S 12 %; POLY RAW COUNT 88; POLYNUCLEAR WBC'S 88 % (0-25)
[2017-05-27 02:14] LABS: TROP-I INTERPRETATION INDETERMINATE; TROPONIN-I 0.37 ng/mL (0.0-0.30)
[2017-05-27 08:19] LABS: POINT-OF-CARE METER ID UU14314088
[2017-05-27 10:46] LABS: HEMATOCRIT 24.7 % (36.0-46.0); MCH 34.4 PG (29.0-34.0); MCHC 34.8 G/DL (30.0-36.0); MCV 98.8 FL (83-99); RBC DIS.WIDTH-CV 16.6 % (11.8-14.6); WHITE BLOOD COUNT 4.6 K/uL (4.1-10.2)
[2017-05-27 10:57] LABS: ANION GAP 10 MEQ/L (2-14); CHLORIDE 94 MEQ/L (99-109); POTASSIUM 4.9 MEQ/L (3.7-5.4); SAMPLE HEMOLYSIS CHECK 0; SAMPLE ICTERIC CHECK 0; SAMPLE LIPEMIA CHECK 0; SODIUM 131 MEQ/L (136-147)
[2017-05-27 11:03] LABS: GFR ESTIMATE (CALCULATED) 7 mL/min/; GLUCOSE 147 mg/dL (70-99); UREA NITROGEN (BUN) 36 mg/dL (9-23)
[2017-05-27 11:04] LABS: IMM.PLATELET FRACTION 3.4 (1-7); MEAN PLAT.VOLUME 11.4 uM^3 (9.5-12.4); PLAT.SUFFICIENCY DECREASED; PLATELET COUNT 44 K/uL (156-360)
[2017-05-27 11:41] LABS: POINT-OF-CARE METER ID UU14314088
[2017-05-27 17:01] LABS: POINT-OF-CARE METER ID UU13113781
[2017-05-27 20:43] LABS: POINT-OF-CARE METER ID UU14174216
[2017-05-28] VITALS (7 sets, daily range): BP systolic 88–101; BP diastolic 50–68
[2017-05-28 05:46] LABS: HEMATOCRIT 26.9 % (36.0-46.0); MCH 34.2 PG (29.0-34.0); MCHC 34.6 G/DL (30.0-36.0); MCV 98.9 FL (83-99); MEAN PLAT.VOLUME 12.5 uM^3 (9.5-12.4); PLATELET COUNT 55 K/uL (156-360); RBC DIS.WIDTH-CV 16.6 % (11.8-14.6); RBC DIS.WIDTH-SD 60.7 % (39-53); RED BLOOD COUNT 2.72 M/uL (3.80-5.20); WHITE BLOOD COUNT 4.6 K/uL (4.1-10.2)
[2017-05-28 06:12] LABS: ANION GAP 10 MEQ/L (2-14); CHLORIDE 92 MEQ/L (99-109); GFR ESTIMATE (CALCULATED) 7 mL/min/; GLUCOSE 105 mg/dL (70-99); POTASSIUM 5.3 MEQ/L (3.7-5.4); SAMPLE HEMOLYSIS CHECK 0; SAMPLE ICTERIC CHECK 0; SAMPLE LIPEMIA CHECK 0; SODIUM 130 MEQ/L (136-147); UREA NITROGEN (BUN) 43 mg/dL (9-23)
[2017-05-28 07:45] LABS: Estimated Average Glucose 171 mg/dL (70-123); HEMOGLOBIN A1c (GLYCOHEMOGLOB) 7.6 % HGB (Below 5.7)
[2017-05-28 08:01] LABS: POINT-OF-CARE METER ID UU14174216
[2017-05-28 11:09] LABS: POINT-OF-CARE METER ID UU14174216
[2017-05-28 16:14] LABS: POINT-OF-CARE METER ID UU14174216
[2017-05-28 21:09] LABS: POINT-OF-CARE METER ID UU14314088
[2017-05-29 03:15] VITALS: BP 102/60
[2017-05-29 05:36] LABS: HEMATOCRIT 26.8 % (36.0-46.0); MCH 34.9 PG (29.0-34.0); MCHC 35.1 G/DL (30.0-36.0); MCV 99.6 FL (83-99); MEAN PLAT.VOLUME 11.9 uM^3 (9.5-12.4); PLATELET COUNT 56 K/uL (156-360); RBC DIS.WIDTH-CV 16.5 % (11.8-14.6); RBC DIS.WIDTH-SD 60.8 % (39-53); RED BLOOD COUNT 2.69 M/uL (3.80-5.20); WHITE BLOOD COUNT 4.4 K/uL (4.1-10.2)
[2017-05-29 06:02] LABS: ANION GAP 11 MEQ/L (2-14); CHLORIDE 89 MEQ/L (99-109); GFR ESTIMATE (CALCULATED) 6 mL/min/; GLUCOSE 88 mg/dL (70-99); POTASSIUM 5.4 MEQ/L (3.7-5.4); SAMPLE HEMOLYSIS CHECK 0; SAMPLE ICTERIC CHECK 0; SAMPLE LIPEMIA CHECK 0; SODIUM 127 MEQ/L (136-147); UREA NITROGEN (BUN) 47 mg/dL (9-23)
[2017-05-29 07:44] VITALS: BP 110/68
[2017-05-29 07:46] LABS: POINT-OF-CARE METER ID UU13113698
[2017-05-29 10:08] LABS: HBSG INDEX 0.21
[2017-05-29 10:09] LABS: AHBS INDEX 0.15; HEPATITIS B SURFACE ANTIBODY Nonreactive
[2017-05-29 11:55] VITALS: BP 95/62
[2017-05-29 11:57] LABS: POINT-OF-CARE METER ID UU14174216
[2017-05-29 16:02] VITALS: BP 97/62
[2017-05-29 16:43] LABS: POINT-OF-CARE METER ID UU13113781
[2017-05-29] MEDS ORDERED: ROCEPHIN 2 GM VI2 GM IV (16:47)
== END 2017-05-29 17:44 | disposition home or self-care (01) | DRG 947 ==
LOC: EME → EDBD 08:27 → 4EAST 11:53 → EDOF 11:53 → ENRESERV 11:58 → EDOF 12:00 → ENRESERV 12:22 → 4EAST 13:55 → ENPENDDIS 05-29 → 4EAST 05-29 17:44
PROVIDERS: Emergency Medicine; Hospitalist; Internal Medicine; Internal Medicine Gastroenterology; Internal Medicine Nephrology
PROC: 0W9G3ZZ Drainage of Peritoneal Cavity, Percutaneous Approach (ICD-10-PCS; principal; 2017-05-26)
PROC: 5A1D70Z Performance of Urinary Filtration, Intermittent, Less than 6 Hours Per Day (ICD-10-PCS; 2017-05-29)
DX: R18.8 Other ascites (principal); N18.6 End stage renal disease; E87.1 Hypo-osmolality and hyponatremia; I12.0 Hypertensive chronic kidney disease with stage 5 chronic kidney disease or end stage renal disease; D69.6 Thrombocytopenia, unspecified; K75.81 Nonalcoholic steatohepatitis (NASH); R07.9 Chest pain, unspecified; E11.22 Type 2 diabetes mellitus with diabetic chronic kidney disease; I48.0 Paroxysmal atrial fibrillation; I95.89 Other hypotension; K70.40 Alcoholic hepatic failure without coma; F17.210 Nicotine dependence, cigarettes, uncomplicated; D63.1 Anemia in chronic kidney disease; F32.9 Major depressive disorder, single episode, unspecified; B96.89 Other specified bacterial agents as the cause of diseases classified elsewhere; R14.0 Abdominal distension (gaseous); I95.9 Hypotension, unspecified; K74.60 Unspecified cirrhosis of liver; Z96.653 Presence of artificial knee joint, bilateral; Z99.2 Dependence on renal dialysis; Z79.899 Other long term (current) drug therapy; Z88.2 Allergy status to sulfonamides; Z79.4 Long term (current) use of insulin
CPT/HCPCS: 49083; 71010; 80048; 80053; 82948; 83036; 84484; 85027; 85610; 85730; 86706; 87070; 87075; 87205; 87340; 89051; 93005; 99281; 99285; J0696; J1644; J1815; J7050; P9047

== ENCOUNTER → 2017-05-30 | Outpatient (CLI) | payer OTHER ==
[~2017-05-30] MED LIST changes: +GENERLAC10 GM/15 M PO; +RENVELA800 MG PO; +ROCEPHIN 2 GM VI2 GM IV
== END | disposition home or self-care (01) ==
LOC: RAD 13:03
PROC: 0W9G3ZZ Drainage of Peritoneal Cavity, Percutaneous Approach (ICD-10-PCS; principal; 2017-05-30)
DX: R18.8 Other ascites (principal); K74.60 Unspecified cirrhosis of liver
CPT/HCPCS: 49083

== ENCOUNTER 2017-06-02 10:08 | Observation (INO) | payer OTHER ==
[~2017-06-02] VITALS: Ht 160 cm; Wt 105.9 kg
[2017-06-02 10:59] LABS: HEMATOCRIT 29.7 % (36.0-46.0); MCH 32.9 PG (29.0-34.0); MCHC 33.3 G/DL (30.0-36.0); MCV 98.7 FL (83-99); MEAN PLAT.VOLUME 10.9 uM^3 (9.5-12.4); PLATELET COUNT 72 K/uL (156-360); RBC DIS.WIDTH-CV 15.9 % (11.8-14.6); RED BLOOD COUNT 3.01 M/uL (3.80-5.20); WHITE BLOOD COUNT 7.2 K/uL (4.1-10.2)
[2017-06-02 11:04] LABS: INTER. NORMALIZED RATIO 1.3; PROTHROMBIN TIME 14.1 SEC (10.2-12.9)
[2017-06-02 11:07] LABS: PTT 41.5 SEC (25-37)
[2017-06-02 11:09] LABS: CHLORIDE 96 mEq/L (99-109)
[2017-06-02 11:10] LABS: MAGNESIUM 1.6 mg/dL (1.3-2.7)
[2017-06-02 11:11] LABS: GLUCOSE 170 mg/dL (70-99)
[2017-06-02 11:13] LABS: ANION GAP 13 MEQ/L (2-14)
[2017-06-02 11:14] LABS: POTASSIUM 4.1 mEq/L (3.7-5.4); SODIUM 135 mEq/L (136-147)
[2017-06-02 11:15] LABS: GFR ESTIMATE (CALCULATED) 14 mL/min/
[2017-06-02 11:21] LABS: TROP-I INTERPRETATION NEGATIVE; TROPONIN-I 0.13 ng/mL (0.0-0.30)
[2017-06-02 11:27] LABS: UREA NITROGEN (BUN) 17 mg/dL (9-23)
[2017-06-02 11:58] LABS: ABS NEUTROPHIL COUNT 6.1; ANISOCYTOSIS 3+; EOSINOPHIL ABS CT 0.2; EOSINOPHILS 2.6 % (0-5.0); INSTRUMENT ABS NEUTROPHIL CT 5.3 K/uL; LYMPHOCYTES 9.5 % (15.0-45.0); MACROCYTES 3+; OVALOCYTES 1+; PLAT.SUFFICIENCY DECREASED; POLYCHROMASIA 1+; SEG.NEUTROPHILS 84.5 % (46.0-76.0); STOMATOCYTES 1+; TARGET CELLS 1+
[2017-06-02 14:00] VITALS: BP 120/54
[2017-06-02] MEDS ORDERED: MIDODRINE HCL5 MG PO (15:17)
[2017-06-02 15:43] VITALS: BP 88/51
[2017-06-02 16:50] LABS: TROP-I INTERPRETATION NEGATIVE; TROPONIN-I 0.17 ng/mL (0.0-0.30)
[2017-06-02 17:14] LABS: POINT-OF-CARE METER ID UU13113831
[2017-06-02 21:00] VITALS: BP 91/53
[2017-06-02 23:31] LABS: TROP-I INTERPRETATION NEGATIVE; TROPONIN-I 0.16 ng/mL (0.0-0.30)
[2017-06-02 23:40] VITALS: BP 87/54
[2017-06-03 03:06] VITALS: BP 97/60
[2017-06-03 05:31] LABS: HEMATOCRIT 27.9 % (36.0-46.0); MCH 32.7 PG (29.0-34.0); MCHC 32.6 G/DL (30.0-36.0); MCV 100.4 FL (83-99); MEAN PLAT.VOLUME 10.2 uM^3 (9.5-12.4); PLATELET COUNT 61 K/uL (156-360); RBC DIS.WIDTH-CV 16.2 % (11.8-14.6); RBC DIS.WIDTH-SD 58.9 % (39-53); RED BLOOD COUNT 2.78 M/uL (3.80-5.20); WHITE BLOOD COUNT 6.2 K/uL (4.1-10.2)
[2017-06-03 06:03] LABS: ANION GAP 12 MEQ/L (2-14); CHLORIDE 95 MEQ/L (99-109); GFR ESTIMATE (CALCULATED) 11 mL/min/; GLUCOSE 148 mg/dL (70-99); POTASSIUM 4.7 MEQ/L (3.7-5.4); SAMPLE HEMOLYSIS CHECK 0; SAMPLE ICTERIC CHECK 0; SAMPLE LIPEMIA CHECK 0; SODIUM 135 MEQ/L (136-147); UREA NITROGEN (BUN) 25 mg/dL (9-23)
[2017-06-03 07:55] VITALS: BP 98/53
== END 2017-06-03 12:24 | disposition home or self-care (01) ==
LOC: EME 10:08 → EDOF 12:22 → ENRESERV 12:27 → 5WEST 13:41
PROVIDERS: Emergency Medicine; Internal Medicine
DX: R07.89 Other chest pain (principal); I95.3 Hypotension of hemodialysis; K65.2 Spontaneous bacterial peritonitis; E87.2 Acidosis; I48.0 Paroxysmal atrial fibrillation; K74.60 Unspecified cirrhosis of liver; K75.81 Nonalcoholic steatohepatitis (NASH); E11.22 Type 2 diabetes mellitus with diabetic chronic kidney disease; N18.6 End stage renal disease; Z99.2 Dependence on renal dialysis; D53.9 Nutritional anemia, unspecified; Z96.653 Presence of artificial knee joint, bilateral; F17.210 Nicotine dependence, cigarettes, uncomplicated; Z79.84 Long term (current) use of oral hypoglycemic drugs; Z88.2 Allergy status to sulfonamides; Z91.018 Allergy to other foods; Z82.49 Family history of ischemic heart disease and other diseases of the circulatory system; Z83.3 Family history of diabetes mellitus; Z82.0 Family history of epilepsy and other diseases of the nervous system
CPT/HCPCS: 71010; 80048; 82948; 83605; 83735; 84484; 85025; 85027; 85610; 85730; 87040; 93005; 99281; 99285; G0378; J0696; J1644; J1815; J7040; J7050; J7120

== ENCOUNTER → 2017-06-06 | Outpatient (CLI) | payer OTHER | END | disposition home or self-care (01) | LOC: RAD 13:15 | PROC: 0W9G3ZZ Drainage of Peritoneal Cavity, Percutaneous Approach (ICD-10-PCS; principal; 2017-06-06) | DX: R18.8 Other ascites (principal) | CPT/HCPCS: 49083; P9047 ==

== ENCOUNTER → 2017-06-13 | Outpatient (CLI) | payer OTHER | END | disposition home or self-care (01) | LOC: RAD 13:12 | PROC: 0W9G3ZZ Drainage of Peritoneal Cavity, Percutaneous Approach (ICD-10-PCS; principal; 2017-06-13) | DX: R18.8 Other ascites (principal) | CPT/HCPCS: 49083; P9047 ==

== ENCOUNTER 2017-06-20 13:00 | Inpatient (IN) | payer OTHER ==
[~2017-06-20] VITALS: Ht 160 cm; Wt 103.6 kg
[~2017-06-20 13:00] MED LIST changes: +BUPROPION HCL100 MG PO; -BUPROPION HCL75 MG PO
[2017-06-20] MEDS ORDERED: CLINDAMYCIN HC300 MG PO (13:13)
[2017-06-20 14:04] LABS: TYPE OF FLUID PARACENTESIS
[2017-06-20 14:55] LABS: BODY FLUID PROTEIN < 3.0 G/DL
[2017-06-20 15:01] LABS: BODY FLUID RBC'S 4000 /MM^3 (0-100); BODY FLUID WBC'S 172 /MM^3 (0-500)
[2017-06-20 15:04] LABS: BODY FLUID EOSINOPHILS 1 % (0-25); MONONUCLEAR WBC'S 73 %; POLYNUCLEAR WBC'S 26 % (0-25)
[2017-06-20 17:27] LABS: CHLORIDE 93 mEq/L (99-109); POTASSIUM 3.9 mEq/L (3.7-5.4); SODIUM 132 mEq/L (136-147)
[2017-06-20 17:28] LABS: GLUCOSE 274 mg/dL (70-99)
[2017-06-20 17:30] LABS: ANION GAP 19 MEQ/L (2-14)
[2017-06-20 17:32] LABS: GFR ESTIMATE (CALCULATED) 6 mL/min/
[2017-06-20 17:33] LABS: UREA NITROGEN (BUN) 41 mg/dL (9-23)
[2017-06-20 18:03] LABS: MCH 34.3 PG (29.0-34.0); RBC DIS.WIDTH-CV 19.8 % (11.8-14.6); RBC DIS.WIDTH-SD 71.3 % (39-53); RED BLOOD COUNT 1.98 M/uL (3.80-5.20)
[2017-06-20] MEDS ORDERED: NEPHRO-VITE,1 TABLET PO (18:16)
[2017-06-20] MEDS ORDERED: ALLOPURINOL100 MG PO (18:16)
[2017-06-20 18:20] LABS: HEMATOLOGY COMMENT 1 SN; IMM.PLATELET FRACTION 7.9 (1-7); MEAN PLAT.VOLUME 11.9 uM^3 (9.5-12.4); PLAT.SUFFICIENCY DECREASED
[2017-06-20 18:21] LABS: PLATELET COUNT 36 K/uL (156-360)
[2017-06-20 20:43] VITALS: BP 86/52
[2017-06-20 21:05] VITALS: BP 95/59
[2017-06-20 21:38] VITALS: BP 81/49
[2017-06-20 21:54] LABS: POINT-OF-CARE METER ID UU13113698
[2017-06-20 22:05] VITALS: BP 84/49
[2017-06-20 23:05] VITALS: BP 80/49
[2017-06-21] VITALS (12 sets, daily range): BP systolic 71–92; BP diastolic 41–54
[2017-06-21 00:43] LABS: METH RESISTANT S AUREUS PCR NEGATIVE (NEGATIVE)
[2017-06-21 00:47] LABS: PROBE CHECK PASS; SPECIMEN PROCESSING CONTROL PASS
[2017-06-21 01:45] LABS: HEMATOCRIT 20.1 % (36.0-46.0); MCH 33.3 PG (29.0-34.0); MCHC 33.8 G/DL (30.0-36.0); MCV 98.5 FL (83-99); RBC DIS.WIDTH-CV 20.4 % (11.8-14.6); RED BLOOD COUNT 2.04 M/uL (3.80-5.20); WHITE BLOOD COUNT 3.4 K/uL (4.1-10.2)
[2017-06-21 02:43] LABS: IMM.PLATELET FRACTION 6.6 (1-7); MEAN PLAT.VOLUME 12.3 uM^3 (9.5-12.4); PLAT.SUFFICIENCY VERY DECREASED; PLATELET COUNT 35 K/uL (156-360)
[2017-06-21 06:43] LABS: HEMATOCRIT 22.2 % (36.0-46.0); MCH 34.1 PG (29.0-34.0); MCHC 34.7 G/DL (30.0-36.0); MCV 98.2 FL (83-99); RBC DIS.WIDTH-CV 20.2 % (11.8-14.6); RBC DIS.WIDTH-SD 68.7 % (39-53); RED BLOOD COUNT 2.26 M/uL (3.80-5.20); WHITE BLOOD COUNT 3.6 K/uL (4.1-10.2)
[2017-06-21 07:20] LABS: ANISOCYTOSIS 3+; EOSINOPHIL (%) 3.9 % (0-5); EOSINOPHIL COUNT 0.1 K/uL (0-0.3); IMM.PLATELET FRACTION 5.3 (1-7); IMMATURE GRANULOCYTE (%) 1.7 % (0.0-0.7); IMMATURE GRANULOCYTE COUNT 0.1 K/uL; INSTRUMENT ABS NEUTROPHIL CT 2.7 K/uL; LYMPHOCYTE COUNT 0.3 K/uL (1.0-2.8); MACROCYTES 3+; MEAN PLAT.VOLUME 11.5 uM^3 (9.5-12.4); MONOCYTE (%) 12.2 % (3-12); MONOCYTE COUNT 0.4 K/uL (0-0.8); NEUTROPHIL (%) 73.9 % (45-76); NEUTROPHIL COUNT 2.7 K/uL (1.8-6.4); PLAT.SUFFICIENCY DECREASED; PLATELET COUNT 32 K/uL (156-360)
[2017-06-21 07:24] LABS: ANION GAP 18 MEQ/L (2-14); CHLORIDE 96 MEQ/L (99-109); GFR ESTIMATE (CALCULATED) 6 mL/min/; GLUCOSE 192 mg/dL (70-99); POTASSIUM 3.7 MEQ/L (3.7-5.4); SAMPLE HEMOLYSIS CHECK 0; SAMPLE ICTERIC CHECK 2; SAMPLE LIPEMIA CHECK 0; SODIUM 135 MEQ/L (136-147); UREA NITROGEN (BUN) 44 mg/dL (9-23)
[2017-06-21 08:09] LABS: POINT-OF-CARE METER ID UU13113698
[2017-06-21 09:25] LABS: VANCOMYCIN, TROUGH 16.2 MCG/ML (10-20)
[2017-06-21 10:07] LABS: MCV 98.2 FL (83-99)
[2017-06-21 10:58] LABS: FERRITIN 472 NG/ML (10-291)
[2017-06-21 11:17] LABS: IRON 72 MCG/DL (35-150)
[2017-06-21 16:43] LABS: POINT-OF-CARE METER ID UU13113698
[2017-06-21 20:16] LABS: POINT-OF-CARE METER ID UU14174216
[2017-06-21 21:04] LABS: POINT-OF-CARE METER ID UU13113698
[2017-06-22 04:19] VITALS: BP 82/48
[2017-06-22 05:15] LABS: HEMATOCRIT 23.5 % (36.0-46.0); MCH 34.2 PG (29.0-34.0); MCHC 34.5 G/DL (30.0-36.0); MCV 99.2 FL (83-99); RBC DIS.WIDTH-CV 21.2 % (11.8-14.6); RED BLOOD COUNT 2.37 M/uL (3.80-5.20); WHITE BLOOD COUNT 5.2 K/uL (4.1-10.2)
[2017-06-22 06:20] LABS: IMM.PLATELET FRACTION 6.3 (1-7); MEAN PLAT.VOLUME 12.2 uM^3 (9.5-12.4); PLAT.SUFFICIENCY VERY DECREASED; PLATELET COUNT 35 K/uL (156-360)
[2017-06-22 08:17] LABS: POINT-OF-CARE METER ID UU13113781
[2017-06-22 09:00] VITALS: BP 88/56
[2017-06-22 11:10] LABS: POINT-OF-CARE METER ID UU13113781
[2017-06-22 12:00] VITALS: BP 84/40
[2017-06-22 16:18] LABS: POINT-OF-CARE METER ID UU13113781
[2017-06-22 16:54] VITALS: BP 84/52
[2017-06-22 19:11] VITALS: BP 98/52
[2017-06-22 21:12] LABS: POINT-OF-CARE METER ID UU13113781
[2017-06-23 00:34] VITALS: BP 94/50
[2017-06-23 04:18] VITALS: BP 81/44
[2017-06-23 07:15] LABS: POINT-OF-CARE METER ID UU13113698; POINT-OF-CARE USER ID ADMMNS
[2017-06-23 07:47] VITALS: BP 99/64
[2017-06-23 08:53] LABS: HEMATOCRIT 24.5 % (36.0-46.0); MCH 33.2 PG (29.0-34.0); MCHC 33.1 G/DL (30.0-36.0); MCV 100.4 FL (83-99); RBC DIS.WIDTH-CV 20.9 % (11.8-14.6); RED BLOOD COUNT 2.44 M/uL (3.80-5.20); WHITE BLOOD COUNT 6.6 K/uL (4.1-10.2)
[2017-06-23 09:12] LABS: IMM.PLATELET FRACTION 4.2 (1-7); MEAN PLAT.VOLUME 11.4 uM^3 (9.5-12.4); PLATELET COUNT 50 K/uL (156-360)
[2017-06-23 09:22] LABS: ANION GAP 13 MEQ/L (2-14); CHLORIDE 99 MEQ/L (99-109); GFR ESTIMATE (CALCULATED) 8 mL/min/; GLUCOSE 140 mg/dL (70-99); POTASSIUM 4.1 MEQ/L (3.7-5.4); SAMPLE HEMOLYSIS CHECK 0; SAMPLE ICTERIC CHECK 2; SAMPLE LIPEMIA CHECK 0; SODIUM 134 MEQ/L (136-147); UREA NITROGEN (BUN) 30 mg/dL (9-23)
[2017-06-23 09:45] LABS: EOSINOPHIL (%) 3.2 % (0-5); EOSINOPHIL COUNT 0.2 K/uL (0-0.3); IMMATURE GRANULOCYTE (%) 3.3 % (0.0-0.7); IMMATURE GRANULOCYTE COUNT 0.2 K/uL; INSTRUMENT ABS NEUTROPHIL CT 4.7 K/uL; LYMPHOCYTE COUNT 0.4 K/uL (1.0-2.8); MONOCYTE COUNT 0.8 K/uL (0-0.8); NEUTROPHIL (%) 73.7 % (45-76); NEUTROPHIL COUNT 4.7 K/uL (1.8-6.4)
[2017-06-23 15:52] VITALS: BP 100/87
[2017-06-23 16:41] LABS: POINT-OF-CARE METER ID UU13113698; POINT-OF-CARE USER ID ENVKC36
[2017-06-23 19:20] VITALS: BP 89/50
[2017-06-23 21:09] LABS: POINT-OF-CARE METER ID UU14174216
[2017-06-23 23:00] VITALS: BP 87/49
[2017-06-24 04:37] VITALS: BP 81/53
[2017-06-24 08:00] VITALS: BP 92/67
[2017-06-24 08:00] LABS: POINT-OF-CARE METER ID UU14174216; POINT-OF-CARE USER ID ENVKC36
[2017-06-24 11:18] VITALS: BP 90/59
[2017-06-24 11:47] LABS: POINT-OF-CARE METER ID UU13113781; POINT-OF-CARE USER ID ENVKC36
[2017-06-24 16:04] VITALS: BP 96/59
[2017-06-24 16:37] LABS: POINT-OF-CARE METER ID UU14174216; POINT-OF-CARE USER ID ENVKC36
[2017-06-24 19:56] VITALS: BP 86/48
[2017-06-24 20:53] LABS: POINT-OF-CARE METER ID UU14174216
[2017-06-24 23:51] VITALS: BP 90/52
[2017-06-25 04:00] VITALS: BP 104/54
[2017-06-25 06:37] VITALS: BP 104/55
[2017-06-25 07:45] LABS: POINT-OF-CARE METER ID UU13113698; POINT-OF-CARE USER ID NUTSLF44
[2017-06-25 11:33] LABS: POINT-OF-CARE METER ID UU13113698; POINT-OF-CARE USER ID NUTSLF44
[2017-06-25 11:36] VITALS: BP 101/59
[2017-06-25 15:54] VITALS: BP 99/62
[2017-06-25 16:44] LABS: POINT-OF-CARE METER ID UU13113698; POINT-OF-CARE USER ID ADMMNS
[2017-06-25 20:24] VITALS: BP 99/58
[2017-06-25 21:53] LABS: POINT-OF-CARE METER ID UU14314084
[2017-06-26 00:12] VITALS: BP 92/65
[2017-06-26 04:09] VITALS: BP 102/75
[2017-06-26 06:10] LABS: POINT-OF-CARE METER ID UU14314084
[2017-06-26 07:52] LABS: HEMATOCRIT 25.3 % (36.0-46.0); MCH 33.6 PG (29.0-34.0); MCHC 32.8 G/DL (30.0-36.0); MCV 102.4 FL (83-99); RBC DIS.WIDTH-CV 21.2 % (11.8-14.6); RBC DIS.WIDTH-SD 74.8 % (39-53); RED BLOOD COUNT 2.47 M/uL (3.80-5.20); WHITE BLOOD COUNT 4.9 K/uL (4.1-10.2)
[2017-06-26 08:31] LABS: ANION GAP 10 MEQ/L (2-14); CHLORIDE 97 MEQ/L (99-109); GFR ESTIMATE (CALCULATED) 7 mL/min/; GLUCOSE 128 mg/dL (70-99); POTASSIUM 4.7 MEQ/L (3.7-5.4); SAMPLE HEMOLYSIS CHECK 0; SAMPLE ICTERIC CHECK 2; SAMPLE LIPEMIA CHECK 0; SODIUM 132 MEQ/L (136-147); UREA NITROGEN (BUN) 38 mg/dL (9-23)
[2017-06-26 10:11] LABS: IMM.PLATELET FRACTION 4.1 (1-7); MEAN PLAT.VOLUME 10.8 uM^3 (9.5-12.4); PLAT.SUFFICIENCY DECREASED; PLATELET COUNT 45 K/uL (156-360)
[2017-06-26 11:36] VITALS: BP 93/51
[2017-06-26 12:30] LABS: POINT-OF-CARE METER ID UU14314084
[2017-06-26 15:46] VITALS: BP 79/46
[2017-06-26 16:58] LABS: POINT-OF-CARE METER ID UU14314084
[2017-06-26 19:56] VITALS: BP 102/58
[2017-06-26 21:52] LABS: POINT-OF-CARE METER ID UU14314084
[2017-06-26 23:37] VITALS: BP 99/62
[2017-06-27] VITALS (8 sets, daily range): BP systolic 82–187; BP diastolic 48–64
[2017-06-27 08:00] LABS: POINT-OF-CARE METER ID UU14314084; POINT-OF-CARE USER ID STWLMB34
[2017-06-27 11:51] LABS: POINT-OF-CARE METER ID UU14314084
[2017-06-27 16:48] LABS: POINT-OF-CARE METER ID UU14314084; POINT-OF-CARE USER ID STWLMB34
[2017-06-27 22:19] LABS: POINT-OF-CARE METER ID UU14208750
[2017-06-28 03:00] VITALS: BP 94/53
[2017-06-28 06:46] LABS: POINT-OF-CARE METER ID UU14314084
[2017-06-28 07:21] VITALS: BP 103/53
[2017-06-28 09:16] LABS: EOSINOPHIL (%) 3.3 % (0-5); EOSINOPHIL COUNT 0.2 K/uL (0-0.3); IMMATURE GRANULOCYTE (%) 1.6 % (0.0-0.7); IMMATURE GRANULOCYTE COUNT 0.1 K/uL; INSTRUMENT ABS NEUTROPHIL CT 3.8 K/uL; LYMPHOCYTE COUNT 0.4 K/uL (1.0-2.8); MCHC 33.6 G/DL (30.0-36.0); MCV 104.2 FL (83-99); MONOCYTE (%) 12.6 % (3-12); MONOCYTE COUNT 0.6 K/uL (0-0.8); NEUTROPHIL (%) 74.6 % (45-76); NEUTROPHIL COUNT 3.8 K/uL (1.8-6.4); RBC DIS.WIDTH-CV 21.5 % (11.8-14.6); RBC DIS.WIDTH-SD 80.9 % (39-53); WHITE BLOOD COUNT 5.1 K/uL (4.1-10.2)
[2017-06-28 09:44] LABS: IMM.PLATELET FRACTION 4.3 (1-7); MEAN PLAT.VOLUME 11.4 uM^3 (9.5-12.4); PLAT.SUFFICIENCY DECREASED; PLATELET COUNT 46 K/uL (156-360)
[2017-06-28 09:52] LABS: CHLORIDE 99 mEq/L (99-109); POTASSIUM 4.8 mEq/L (3.7-5.4); SODIUM 133 mEq/L (136-147)
[2017-06-28 09:54] LABS: GLUCOSE 130 mg/dL (70-99)
[2017-06-28 09:55] LABS: ANION GAP 11 MEQ/L (2-14)
[2017-06-28 09:57] LABS: GFR ESTIMATE (CALCULATED) 8 mL/min/
[2017-06-28 09:58] LABS: UREA NITROGEN (BUN) 30 mg/dL (9-23)
[2017-06-28 12:52] VITALS: BP 108/53
[2017-06-28 13:28] LABS: POINT-OF-CARE METER ID UU14314084
[2017-06-28 15:52] VITALS: BP 111/56
[2017-06-28 16:23] LABS: POINT-OF-CARE METER ID UU14314084
[2017-06-28 19:06] VITALS: BP 92/50
[2017-06-28 22:00] LABS: POINT-OF-CARE METER ID UU14314084
[2017-06-28 22:55] VITALS: BP 93/54
[2017-06-29 03:10] VITALS: BP 87/53
[2017-06-29 06:47] LABS: POINT-OF-CARE METER ID UU14208750
[2017-06-29 07:15] VITALS: BP 115/58
[2017-06-29 12:15] VITALS: BP 88/48
[2017-06-29 12:24] LABS: POINT-OF-CARE METER ID UU14208750
[2017-06-29 16:45] VITALS: BP 103/53
[2017-06-29 16:56] LABS: POINT-OF-CARE METER ID UU14208750
[2017-06-29 20:02] VITALS: BP 102/56
[2017-06-29 21:25] LABS: POINT-OF-CARE METER ID UU14208750
[2017-06-30 00:34] VITALS: BP 96/55
[2017-06-30 06:17] LABS: POINT-OF-CARE METER ID UU14208750
[2017-06-30 07:53] VITALS: BP 95/48
[2017-06-30 09:09] LABS: BASOPHIL COUNT 0.1 K/uL (0-0.1); EOSINOPHIL (%) 3.8 % (0-5); EOSINOPHIL COUNT 0.2 K/uL (0-0.3); HEMATOCRIT 25.6 % (36.0-46.0); IMMATURE GRANULOCYTE (%) 2.5 % (0.0-0.7); IMMATURE GRANULOCYTE COUNT 0.2 K/uL; INSTRUMENT ABS NEUTROPHIL CT 4.3 K/uL; LYMPHOCYTE COUNT 0.5 K/uL (1.0-2.8); MCH 34.9 PG (29.0-34.0); MCHC 32.8 G/DL (30.0-36.0); MCV 106.2 FL (83-99); MEAN PLAT.VOLUME 11.2 uM^3 (9.5-12.4); MONOCYTE (%) 11.7 % (3-12); MONOCYTE COUNT 0.7 K/uL (0-0.8); NEUTROPHIL (%) 72.4 % (45-76); NEUTROPHIL COUNT 4.3 K/uL (1.8-6.4); RBC DIS.WIDTH-CV 21.9 % (11.8-14.6); RBC DIS.WIDTH-SD 83.4 % (39-53); RED BLOOD COUNT 2.41 M/uL (3.80-5.20)
[2017-06-30 09:23] LABS: PLATELET COUNT 61 K/uL (156-360)
[2017-06-30 09:24] LABS: ANION GAP 10 MEQ/L (2-14); CHLORIDE 97 MEQ/L (99-109); POTASSIUM 4.3 MEQ/L (3.7-5.4); SAMPLE HEMOLYSIS CHECK 0; SAMPLE ICTERIC CHECK 2; SAMPLE LIPEMIA CHECK 0; SODIUM 134 MEQ/L (136-147)
[2017-06-30 09:32] LABS: GFR ESTIMATE (CALCULATED) 10 mL/min/; GLUCOSE 140 mg/dL (70-99); UREA NITROGEN (BUN) 24 mg/dL (9-23)
[2017-06-30] MEDS ORDERED: PERCOCET 5/31 TABLET PO (10:35)
[2017-06-30] MEDS ORDERED: MUPIROCIN15 GM TP (10:35)
[2017-06-30] MEDS ORDERED: ANCEF,KEFZOL1 GM IV (10:35)
[2017-06-30] MEDS ORDERED: NYSTATIN15 GM TP (10:35)
[2017-06-30 13:26] LABS: POINT-OF-CARE METER ID UU14208750
[2017-06-30] MEDS ORDERED: GLIPIZIDE5 MG PO (13:56)
[2017-06-30 15:35] VITALS: BP 109/55
[2017-06-30 15:49] LABS: POINT-OF-CARE METER ID UU14314084
[2017-06-30 19:50] VITALS: BP 98/56
[2017-06-30 21:25] LABS: POINT-OF-CARE METER ID UU14208750
[2017-07-01 00:16] VITALS: BP 93/53
[2017-07-01 07:51] VITALS: BP 116/64
[2017-07-01 07:52] LABS: POINT-OF-CARE METER ID UU14208750
[2017-07-01 11:44] LABS: POINT-OF-CARE METER ID UU14314084
[2017-07-04] MEDS ORDERED: NEPHRO-VITE,1 TABLET PO (12:59)
[2017-07-09] MEDS ORDERED: LACTULOSE10 GM/151 PO (13:27)
[2017-07-09] MEDS ORDERED: GLUCOTROL5 MG PO (13:28)
[2017-07-09] MEDS ORDERED: PERCOCET 5/31 TABLET PO (13:30)
[2017-07-09] MEDS ORDERED: XIFAXAN550 MG PO (13:31)
[2017-07-09] MEDS ORDERED: TYLENOL REGULA325 MG PO (13:31)
[2017-07-09] MEDS ORDERED: MILK OF MAGN PO (14:18)
[2017-07-09] MEDS ORDERED: DULCOLAX5 MG PO (14:19)
[2017-07-09] MEDS ORDERED: ENEMA133 M2 PR (14:20)
== END 2017-07-01 13:40 | DRG 871 ==
LOC: EME 13:00 → RAD 13:00 → EDSTATUS 13:15 → 4EAST 20:21 → EDOF 20:21 → ENRESERV 20:22 → 4EAST 21:31 → ENRESERV 06-25 17:49 → 2EASTP 06-25 19:24
PROVIDERS: Emergency Medicine; Hospitalist; Internal Medicine; Internal Medicine Gastroenterology; Internal Medicine Nephrology
PROC: 30233N1 Transfusion of Nonautologous Red Blood Cells into Peripheral Vein, Percutaneous Approach (ICD-10-PCS; principal; 2017-06-20)
PROC: 0W9G3ZZ Drainage of Peritoneal Cavity, Percutaneous Approach (ICD-10-PCS; 2017-06-21)
PROC: 5A1D70Z Performance of Urinary Filtration, Intermittent, Less than 6 Hours Per Day (ICD-10-PCS; 2017-06-21)
PROC: 0W9G3ZZ Drainage of Peritoneal Cavity, Percutaneous Approach (ICD-10-PCS; 2017-06-28)
DX: A41.9 Sepsis, unspecified organism (principal); L03.311 Cellulitis of abdominal wall; R65.20 Severe sepsis without septic shock; Z99.2 Dependence on renal dialysis; N18.6 End stage renal disease; Z96.653 Presence of artificial knee joint, bilateral; I12.0 Hypertensive chronic kidney disease with stage 5 chronic kidney disease or end stage renal disease; F17.210 Nicotine dependence, cigarettes, uncomplicated; E66.01 Morbid (severe) obesity due to excess calories; Z68.41 Body mass index [BMI] 40.0-44.9, adult; K75.81 Nonalcoholic steatohepatitis (NASH); E11.22 Type 2 diabetes mellitus with diabetic chronic kidney disease; K72.10 Chronic hepatic failure without coma; B35.6 Tinea cruris; L97.519 Non-pressure chronic ulcer of other part of right foot with unspecified severity; D63.1 Anemia in chronic kidney disease; I48.0 Paroxysmal atrial fibrillation; M10.9 Gout, unspecified; D61.818 Other pancytopenia; K74.60 Unspecified cirrhosis of liver; K76.6 Portal hypertension; L03.031 Cellulitis of right toe; E87.1 Hypo-osmolality and hyponatremia; R18.8 Other ascites; I95.89 Other hypotension; E87.2 Acidosis; Z79.4 Long term (current) use of insulin; E86.1 Hypovolemia
CPT/HCPCS: 49083; 76882; 80048; 80069; 80202; 82040; 82728; 82948; 83540; 83605; 84100; 84157; 84466; 85014; 85018; 85025; 85027; 85049; 86850; 86900; 86901; 86920; 87040; 87070; 87075; 87205; 87641; 88108; 88305; 89051; 93005; 97530 GP; 99281; 99285; A6260; J0690; J0696; J0881; J1160; J1644; J1756; J1815; J2270; J2543; J3370; J7040; J7050; P9016; P9047

== ENCOUNTER → 2017-07-04 | Outpatient (CLI) | payer OTHER ==
[~2017-07-04] MED LIST changes: +ANCEF,KEFZOL1 GM IV; -BUPROPION HCL100 MG PO; +BUPROPION HCL75 MG PO; +CLINDAMYCIN HC300 MG PO; +DULCOLAX5 MG PO; +ENEMA133 M2 PR; +GLIPIZIDE5 MG PO; +GLUCOTROL5 MG PO; +LACTULOSE10 GM/151 PO; +MILK OF MAGN PO; +MUPIROCIN15 GM TP; +NYSTATIN15 GM TP; +PERCOCET 5/31 TABLET PO; +TYLENOL REGULA325 MG PO
== END ==
LOC: RAD 12:15
PROC: 0W9G3ZZ Drainage of Peritoneal Cavity, Percutaneous Approach (ICD-10-PCS; principal; 2017-07-04)
DX: R18.8 Other ascites (principal)
CPT/HCPCS: 49083; P9047

== ENCOUNTER 2017-07-11 06:21 | Day surgery (SDC) | payer OTHER ==
[~2017-07-11] VITALS: Ht 160 cm; Wt 99.7 kg
[~2017-07-11 06:21] MED LIST changes: -CEFAZOLIN-2 GM/50 ML IV
[2017-07-11 07:30] LABS: HEMATOCRIT 28.3 % (36.0-46.0); MCH 34.3 PG (29.0-34.0); MCHC 32.5 G/DL (30.0-36.0); MCV 105.6 FL (83-99); RBC DIS.WIDTH-SD 84.4 % (39-53); RED BLOOD COUNT 2.68 M/uL (3.80-5.20); WHITE BLOOD COUNT 8.6 K/uL (4.1-10.2)
[2017-07-11 07:35] LABS: PLATELET COUNT 82 K/uL (156-360)
[2017-07-11] MEDS ORDERED: CEFAZOLIN-2 GM/50 ML IV (07:36)
[2017-07-11 07:37] LABS: POINT-OF-CARE METER ID UU14174212
[2017-07-11 07:37] LABS: INTER. NORMALIZED RATIO 1.8; PROTHROMBIN TIME 20.4 SEC (10.2-12.9)
[2017-07-11 07:40] LABS: PTT 36.4 SEC (25-37)
[2017-07-11] MEDS ORDERED: NEPHRO-VITE,1 TABLET PO (07:49)
[2017-07-11 07:57] VITALS: BP 121/66
[2017-07-11 08:07] LABS: ANION GAP 11 MEQ/L (2-14); CHLORIDE 92 MEQ/L (99-109); GFR ESTIMATE (CALCULATED) 9 mL/min/; GLUCOSE 160 mg/dL (70-99); POTASSIUM 4.4 MEQ/L (3.7-5.4); SAMPLE HEMOLYSIS CHECK 0; SAMPLE ICTERIC CHECK 1; SAMPLE LIPEMIA CHECK 0; SODIUM 135 MEQ/L (136-147); UREA NITROGEN (BUN) 37 mg/dL (9-23)
[2017-07-11 08:47] LABS: METH RESISTANT S AUREUS PCR NEGATIVE (NEGATIVE); PROBE CHECK PASS; SPECIMEN PROCESSING CONTROL PASS
[2017-07-11 11:05] LABS: POINT-OF-CARE METER ID UU13113675
[2017-07-11 12:45] VITALS: BP 94/53
[2017-07-11 13:45] VITALS: BP 88/51
[2017-07-11 14:09] VITALS: BP 123/68
== END 2017-07-11 14:05 ==
LOC: SDC 06:21 → EDSTATUS 08:55 → SDC 14:05
PROVIDERS: Surgery
DX: E11.22 Type 2 diabetes mellitus with diabetic chronic kidney disease (principal); I12.0 Hypertensive chronic kidney disease with stage 5 chronic kidney disease or end stage renal disease; N18.6 End stage renal disease; Z99.2 Dependence on renal dialysis; I25.10 Atherosclerotic heart disease of native coronary artery without angina pectoris; I48.91 Unspecified atrial fibrillation; Z88.2 Allergy status to sulfonamides; E66.01 Morbid (severe) obesity due to excess calories; Z68.38 Body mass index [BMI] 38.0-38.9, adult; K75.81 Nonalcoholic steatohepatitis (NASH); Z87.891 Personal history of nicotine dependence; Z79.84 Long term (current) use of oral hypoglycemic drugs
CPT/HCPCS: 80048; 82948; 85027; 85610; 85730; 87641; C1768; J0690; J1644; J2250; J2720; J3010; J7040

== ENCOUNTER → 2017-07-11 | Outpatient (CLI) | payer OTHER ==
[~2017-07-11] MED LIST changes: +CEFAZOLIN-2 GM/50 ML IV
== END ==
LOC: RAD 13:15
PROC: 0W9G3ZZ Drainage of Peritoneal Cavity, Percutaneous Approach (ICD-10-PCS; principal; 2017-07-11)
DX: R18.8 Other ascites (principal)
CPT/HCPCS: 49083; P9047

== ENCOUNTER 2017-07-18 05:22 | Inpatient (IN) | payer OTHER ==
[~2017-07-18] VITALS: Ht 160 cm; Wt 97.6 kg
[~2017-07-18 05:22] MED LIST changes: +BUPROPION HCL100 MG PO; -BUPROPION HCL75 MG PO; +CEFAZOLIN-2 GM/50 ML IV
[2017-07-18 07:01] LABS: HEMATOCRIT 30.8 % (36.0-46.0); MCH 34.6 PG (29.0-34.0); MCHC 32.8 G/DL (30.0-36.0); MCV 105.5 FL (83-99); MEAN PLAT.VOLUME 10.9 uM^3 (9.5-12.4); RBC DIS.WIDTH-CV 22.4 % (11.8-14.6); RBC DIS.WIDTH-SD 85.5 % (39-53); RED BLOOD COUNT 2.92 M/uL (3.80-5.20); WHITE BLOOD COUNT 19.9 K/uL (4.1-10.2)
[2017-07-18 07:08] LABS: PLATELET COUNT 121 K/uL (156-360)
[2017-07-18 07:13] LABS: CHLORIDE 92 mEq/L (99-109); SODIUM 134 mEq/L (136-147)
[2017-07-18 07:15] LABS: GLUCOSE 183 mg/dL (70-99)
[2017-07-18 07:16] LABS: ANION GAP 24 MEQ/L (2-14)
[2017-07-18 07:22] LABS: GFR ESTIMATE (CALCULATED) 6 mL/min/; POTASSIUM 5.8 mEq/L (3.7-5.4); UREA NITROGEN (BUN) 59 mg/dL (9-23)
[2017-07-18 08:13] LABS: BASOPHIL COUNT 0.1 K/uL (0-0.1); EOSINOPHIL (%) 0.2 % (0-5); IMMATURE GRANULOCYTE (%) 1.3 % (0.0-0.7); IMMATURE GRANULOCYTE COUNT 0.3 K/uL; INSTRUMENT ABS NEUTROPHIL CT 17.7 K/uL; LYMPHOCYTE COUNT 0.6 K/uL (1.0-2.8); MONOCYTE (%) 6.4 % (3-12); MONOCYTE COUNT 1.3 K/uL (0-0.8); NEUTROPHIL (%) 88.9 % (45-76); NEUTROPHIL COUNT 17.7 K/uL (1.8-6.4)
[2017-07-18 09:05] LABS: TROP-I INTERPRETATION NEGATIVE; TROPONIN-I 0.02 ng/mL (0.0-0.30)
[2017-07-18] MEDS ORDERED: METRONIDAZOLE500 MG PO (13:15)
[2017-07-18] MEDS ORDERED: NOVOLOG PE100 UNITS/ SC (13:16)
[2017-07-18] MEDS ORDERED: COMPAZINE10 MG PO (13:17)
[2017-07-18 15:30] VITALS: BP 98/50
[2017-07-18 15:40] VITALS: BP 98/50
[2017-07-18 16:10] LABS: ANION GAP 22 MEQ/L (2-14); CHLORIDE 95 MEQ/L (99-109); POTASSIUM 5.4 MEQ/L (3.7-5.4); SAMPLE HEMOLYSIS CHECK 0; SAMPLE ICTERIC CHECK 1; SAMPLE LIPEMIA CHECK 0; SODIUM 136 MEQ/L (136-147)
[2017-07-18 16:16] LABS: GFR ESTIMATE (CALCULATED) 7 mL/min/; GLUCOSE 137 mg/dL (70-99); UREA NITROGEN (BUN) 60 mg/dL (9-23)
[2017-07-18 17:06] LABS: POINT-OF-CARE METER ID UU14314088
[2017-07-18 19:00] VITALS: BP 91/62
[2017-07-18 22:15] VITALS: BP 78/00
[2017-07-18 22:43] LABS: POINT-OF-CARE METER ID UU14314088
[2017-07-18 22:58] LABS: HEMATOCRIT 34.4 % (36.0-46.0); MCV 108.9 FL (83-99)
[2017-07-18 22:59] VITALS: BP 76/44
[2017-07-18 23:00] VITALS: BP 77/64
[2017-07-18 23:11] LABS: TOTAL BILIRUBIN 3.9 mg/dL (0.0-1.0)
[2017-07-18 23:12] LABS: ALKALINE PHOSPHATASE 206 IU/L (3-129)
[2017-07-18 23:15] LABS: DIRECT BILIRUBIN 2.8 mg/dL (0.0-0.3)
[2017-07-19] VITALS (11 sets, daily range): BP systolic 0–94; BP diastolic 0–71
[2017-07-19 00:40] LABS: METH RESISTANT S AUREUS PCR NEGATIVE (NEGATIVE)
[2017-07-19 00:49] LABS: PROBE CHECK PASS; SPECIMEN PROCESSING CONTROL PASS
[2017-07-19 00:52] LABS: POINT-OF-CARE METER ID UU14208751
[2017-07-19 01:25] LABS: POINT-OF-CARE METER ID UU14208751
[2017-07-19 01:48] LABS: POINT-OF-CARE METER ID UU14162636
[2017-07-19 02:36] LABS: C DIFF TOXIN POSITIVE (NEGATIVE)
[2017-07-19 02:38] LABS: PROBE CHECK PASS
[2017-07-19 04:46] LABS: HEMATOCRIT 31.1 % (36.0-46.0); MCHC 31.8 G/DL (30.0-36.0); MCV 109.9 FL (83-99); NRBC (%) 0.2 /100 WBC (0-0); PLATELET COUNT 154 K/uL (156-360); RBC DIS.WIDTH-CV 22.7 % (11.8-14.6); RBC DIS.WIDTH-SD 91.5 % (39-53); RED BLOOD COUNT 2.83 M/uL (3.80-5.20); WHITE BLOOD COUNT 26.3 K/uL (4.1-10.2)
[2017-07-19 04:55] LABS: CHLORIDE 97 mEq/L (99-109); SODIUM 131 mEq/L (136-147)
[2017-07-19 04:56] LABS: CHLORIDE 92 mEq/L (99-109); POTASSIUM 5.2 mEq/L (3.7-5.4)
[2017-07-19 04:57] LABS: GLUCOSE 142 mg/dL (70-99)
[2017-07-19 04:58] LABS: ANION GAP 13 MEQ/L (2-14); GLUCOSE 146 mg/dL (70-99)
[2017-07-19 04:59] LABS: ANION GAP 20 MEQ/L (2-14)
[2017-07-19 05:01] LABS: GFR ESTIMATE (CALCULATED) 7 mL/min/
[2017-07-19 05:02] LABS: GFR ESTIMATE (CALCULATED) 7 mL/min/; UREA NITROGEN (BUN) 59 mg/dL (9-23)
[2017-07-19 05:03] LABS: UREA NITROGEN (BUN) 58 mg/dL (9-23)
[2017-07-19 05:07] LABS: TROP-I INTERPRETATION NEGATIVE; TROPONIN-I 0.07 ng/mL (0.0-0.30)
[2017-07-19 05:08] LABS: SODIUM 121 mEq/L (136-147)
[2017-07-19 05:31] LABS: VANCOMYCIN, TROUGH 15.4 MCG/ML (10-20)
[2017-07-19 09:25] LABS: ANION GAP 31 MEQ/L (2-14); CHLORIDE 100 MEQ/L (99-109); GFR ESTIMATE (CALCULATED) 7 mL/min/; GLUCOSE 127 mg/dL (70-99); POTASSIUM 5.8 MEQ/L (3.7-5.4); SAMPLE HEMOLYSIS CHECK 0; SAMPLE ICTERIC CHECK 1; SAMPLE LIPEMIA CHECK 0; UREA NITROGEN (BUN) 63 mg/dL (9-23); VANCOMYCIN, TROUGH 14.5 MCG/ML (10-20)
[2017-07-19 09:32] LABS: SODIUM 138 MEQ/L (136-147)
[2017-07-19 09:33] LABS: CARBON DIOXIDE (BICARBONATE) < 10.0 MEQ/L (20-31)
== END 2017-07-19 16:22 | DRG 871 ==
LOC: EME → EDBD 05:22 → EME 05:22 → EDOF 10:56 → 4WEST 10:56 → ENRESERV 10:59 → CANRESERV 11:11 → EDOF 11:12 → ENRESERV 11:38 → 4EAST 14:32 → ENRESERV 22:55 → 4WEST 23:00 → ENRESERV 07-19 10:32 → CANRESERV 07-19 11:45 → 4WEST 07-19 12:14
PROVIDERS: Emergency Medicine; Hospitalist; Internal Medicine; Internal Medicine Cardiovascular Disease; Internal Medicine Nephrology; Specialist
PROC: 5A1D80Z Performance of Urinary Filtration, Prolonged Intermittent, 6-18 hours Per Day (ICD-10-PCS; principal; 2017-07-18)
DX: A41.9 Sepsis, unspecified organism (principal); N18.6 End stage renal disease; R65.21 Severe sepsis with septic shock; K76.7 Hepatorenal syndrome; J96.00 Acute respiratory failure, unspecified whether with hypoxia or hypercapnia; J18.9 Pneumonia, unspecified organism; A04.72 Enterocolitis due to Clostridium difficile, not specified as recurrent; K76.6 Portal hypertension; Z66 Do not resuscitate; Z51.5 Encounter for palliative care; R18.8 Other ascites; E87.1 Hypo-osmolality and hyponatremia; E87.2 Acidosis; I12.0 Hypertensive chronic kidney disease with stage 5 chronic kidney disease or end stage renal disease; J98.11 Atelectasis; E11.22 Type 2 diabetes mellitus with diabetic chronic kidney disease; K31.89 Other diseases of stomach and duodenum; Z96.653 Presence of artificial knee joint, bilateral; K74.69 Other cirrhosis of liver; D69.6 Thrombocytopenia, unspecified; I48.0 Paroxysmal atrial fibrillation; E55.9 Vitamin D deficiency, unspecified; E66.9 Obesity, unspecified; E87.5 Hyperkalemia; F32.9 Major depressive disorder, single episode, unspecified; K72.10 Chronic hepatic failure without coma; K75.81 Nonalcoholic steatohepatitis (NASH); K80.20 Calculus of gallbladder without cholecystitis without obstruction; M10.9 Gout, unspecified; D50.9 Iron deficiency anemia, unspecified; D63.1 Anemia in chronic kidney disease; D73.1 Hypersplenism; Z91.15 Patient's noncompliance with renal dialysis; Z99.2 Dependence on renal dialysis; Z79.84 Long term (current) use of oral hypoglycemic drugs; Z87.891 Personal history of nicotine dependence; Z68.38 Body mass index [BMI] 38.0-38.9, adult; Z82.49 Family history of ischemic heart disease and other diseases of the circulatory system; Z82.0 Family history of epilepsy and other diseases of the nervous system
CPT/HCPCS: 71010; 74176; 80048; 80048 91; 80069; 80076; 80202; 81003; 82140; 82945; 82948; 83605; 83735; 83986 90; 84157; 84484; 85014; 85018; 85025; 85027; 86850; 86900; 86901; 87040; 87070; 87075; 87205; 87493; 87641; 89051; 93005; C1751; C1788; J0696; J1160; J1644; J1815; J2060; J2270; J2543; J3370; J7030; J7040; J7042; J7050